=== PATIENT | female | born 1955 | race Caucasian/White ===

== ENCOUNTER → 2018-05-19 08:08 | Outpatient (CLI) | payer BC, SELFPAY ==
--- NOTE | 2018-05-19 08:14 | MM_ITS ---
MM Dig screening mamm BI w/CAD CAD Screening COMPARISON: Digital mammograms with CAD 04/29/2017 and 04/18/2016 INDICATION: There is a history of breast cancer in patient's paternal aunt. TECHNIQUE: Standard CC and MLO images were obtained. R2 CAD reviewed. FINDINGS: The breasts are closed primarily of fat with minimal scattered fibroglandular densities in each breast. Again noted is a small area of asymmetric glandular density central portion of the right breast which is stable and unchanged from previous exams. There is no suspicious lesion and there are no suspicious microcalcifications. IMPRESSION: Stable exam no suspicious lesion seen recommend yearly follow-up BI-RADS Category: 2 Benign Finding(s) RECOMMENDED FOLLOW-UP: 1YR - 1 YEAR FOLLOW-UP (A letter has been sent to the patient regarding results of the study.)
== END ==
PROVIDERS: PCP Internal Medicine; Visit Provider Obstetrics & Gynecology Gynecology
DX: Z12.31 Encounter for screening mammogram for malignant neoplasm of breast (principal)
CPT/HCPCS: 77067

== ENCOUNTER → 2020-02-07 08:47 | Outpatient (CLI) | payer BC, SELFPAY ==
--- NOTE | 2020-02-07 08:52 | MM_ITS ---
PROCEDURE: MM DIG SCREENING MAMM BI W/CAD DIGITAL BREAST TOMOSYNTHESIS INCLUDED Patient Age:64Y CLINICAL INDICATION: SCREENING no hormones. No new complaints.. Family history. Aunt with breast cancer COMPARISON: DIGMAMMS MAMMOGRAM SCREEN-SIGNAL MAINTAINER HELPER N/C from 06/07/2008 DIGMAMMS MAMMOGRAM SCREEN-SIGNAL MAINTAINER HELPER N/C from 06/09/2009 DIGMAMMDX MAMMOGRAM DX-SIGNAL MAINTAINER HELPER N/C from 07/04/2009 D[facility] DIGITAL MAMM-SCREEN BILATERAL from 09/06/2010 [facility] DIGITAL MAMM-SCREEN BILATERAL from 02/04/2012 [facility] DIG MAMM-SCREEN PROSPER from 04/16/2013 [facility] DIG MAMM-SCREEN PROSPER from 05/08/2015 [facility] DIG MAMM-SCREEN PROSPER from 04/18/2016 DMDXUAVR DIG MAMM-DX UNI ADD VIEWS-RT from 04/30/2016 [facility] DIG MAMM-SCREEN PROSPER W/CAD from 04/29/2017 [facility] MM Dig screening mamm BI w/CAD from 05/19/2018 TECHNIQUE: Standard CC and MLO images were obtained. Axillary CC view included on right 6 R2 CAD reviewed. Bilateral digital breast tomosynthesis included. FINDINGS: . The minimal residual fibroglandular elements bilaterally, most evident at superior right breast. No suspicious calcifications. No suspicious new mass Right breast: Asymmetric area of density at the right breast is been present and stable on numerous films even those dating back to 2012, 2011 and even on film screen study from 2007 additional-given this longstanding stability a can be followed safely. Left breast: No new areas of significant concern after reviewing all sequences Subtle areas of nodularity dissipate on one-view to another and can be followed Bilateral follow-up 1 year recommended and should be encouraged IMPRESSION: No new areas of significant concern. Bilateral follow-up 1 year recommended and should be emphasized/encouraged. BI-RAD Category: 2 Benign Finding(s) FOLLOW-UP: 1YR 1 Year Follow-up (A letter has been sent to the patient regarding results of the study.) Dictated by: Ramirez Alvarez MD 02/14/2020 09:03 Electronically signed by Ramirez Alvarez MD in [facility] 02/14/2020 09:03
== END ==
PROVIDERS: PCP Internal Medicine; Visit Provider Internal Medicine
DX: Z12.31 Encounter for screening mammogram for malignant neoplasm of breast (principal)
CPT/HCPCS: 77063; 77067

== ENCOUNTER → 2020-08-21 09:52 | Outpatient (CLI) | payer BC, SELFPAY ==
--- NOTE | 2020-08-21 10:02 | XR_ITS ---
PROCEDURE: XR FOOT RT MIN 3V CLINICAL INDICATION: RT FOOT PAIN,5TH METATARSAL COMPARISON: No exams were available for comparison FINDINGS: There is a fine linear nondisplaced fracture base of 5th metatarsal somewhat more proximal than seen for typical Plummer type fracture. The remaining metatarsals in all of phalanges appear intact. The tarsal bones are normal, the plantar arch is normal. IMPRESSION: Nondisplaced fracture base of 5th metatarsal Dictated by: Dr. Yuan Rios MD 08/21/2020 10:25 Dr. Yuan Rios MD in [facility] 08/21/2020 10:25
== END ==
PROVIDERS: PCP Internal Medicine; Visit Provider Internal Medicine
DX: M79.671 Pain in right foot (principal)
CPT/HCPCS: 73630

== ENCOUNTER → 2020-09-18 10:28 | Outpatient (CLI) | payer BC, SELFPAY ==
--- NOTE | 2020-09-18 10:33 | XR_ITS ---
PROCEDURE: XR FOOT WT BEARING RT 3V CLINICAL INDICATION: fracture follow up COMPARISON: CR XR FOOT RT MIN 3V from 08/21/2020 FINDINGS: There is a persistent transverse lucency at the base of the 5th metatarsal. Complete bony union not felt to be present at this time. IMPRESSION: The nondisplaced fracture base of 5th metatarsal without complete bony union at this time Dictated by: Filippo Smith MD 09/18/2020 16:26 Filippo Smith MD in [facility] 09/18/2020 16:26
== END ==
PROVIDERS: PCP Internal Medicine; Visit Provider Podiatrist
DX: S92.351A Displaced fracture of fifth metatarsal bone, right foot, initial encounter for closed fracture (principal); T14.8XXA Other injury of unspecified body region, initial encounter
CPT/HCPCS: 73630

== ENCOUNTER 2020-10-02 07:43 | Outpatient (RCR) | payer BC, SELFPAY | END 2020-10-02 07:45 | disposition home or self-care (01) | LOC: PT 07:43 | PROVIDERS: PCP Internal Medicine; Visit Provider Podiatrist | DX: S92.351D Displaced fracture of fifth metatarsal bone, right foot, subsequent encounter for fracture with routine healing (principal) | CPT/HCPCS: 97163 ==

== ENCOUNTER → 2020-11-13 08:36 | Outpatient (CLI) | payer BC, SELFPAY ==
--- NOTE | 2020-11-13 08:41 | XR_ITS ---
PROCEDURE: XR FOOT WT BEARING RT 3V CLINICAL INDICATION: fracture follow up COMPARISON: CR XR FOOT RT MIN 3V from 08/21/2020 CR XR FOOT WT BEARING RT 3V from 09/18/2020 FINDINGS: Healing fractures present at the base of the 5th metatarsal. Fracture line is barely visible. The joint spaces are well-preserved. No significant degenerative/arthritic changes. No erosive changes evident. Other findings:None. IMPRESSION: Healing fracture base of 5th metatarsal Dictated by: Filippo Smith MD 11/13/2020 14:49 Filippo Smith MD in [facility] 11/13/2020 14:49
== END ==
PROVIDERS: PCP Internal Medicine; Visit Provider Podiatrist
DX: T14.8XXA Other injury of unspecified body region, initial encounter (principal)
CPT/HCPCS: 73630

== ENCOUNTER → 2022-02-22 13:18 | Outpatient (CLI) | payer MEDICARE, SELFPAY ==
[2022-02-22 14:50] LABS: Chloride 106 mmol/L (98-107)
[2022-02-22 14:51] LABS: Potassium 4.6 mmoL/L (3.5-5.1); Sodium 140 mmol/L (136-145)
[2022-02-22 14:54] LABS: Albumin Level 4.3 g/dl (3.5-5.0); Albumin/Globulin Ratio 1.4 (1.1-1.8); Chol/HDL Ratio 4.5 (1-3.5); Cholesterol 290 mg/dl (140-200); Glucose 85 mg/dl (74-100); HDL Cholesterol 65 mg/dl (40-60); Total Protein,Serum 7.3 g/dl (6.3-8.2); Triglycerides 177 mg/dl (30-150); VLDL Cholesterol 35 mg/dL (0-40)
[2022-02-22 15:04] LABS: Alanine Aminotransferase 33 U/L (12-78); Alkaline Phosphatase 77 U/L (38-126); Aspartate Amino Transferase 40 U/L (14-36); Bilirubin,Total 0.9 mg/dl (0.2-1.3); Blood Urea Nitrogen 13 mg/dl (7-17); Estimated Glomerular Filt Rate 72 ml/min (>60); GFR (African American) 87 ML/MIN (>60)
[2022-02-22 15:05] LABS: Anion Gap 11.6 mEq/L (5-15); Carbon Dioxide 27 mmol/L (22.0-30.0); Direct LDL Cholesterol 178.28 mg/dL (100-129)
[2022-02-22 15:20] LABS: T4 (Thyroxine) 10.7 ug/dl (5.53-11.0)
[2022-02-24 08:15] LABS: Triiodothyronine (T3) Total 94 ng/dL (71-180)
== END ==
PROVIDERS: PCP Internal Medicine; Visit Provider Internal Medicine
DX: E03.9 Hypothyroidism, unspecified (principal); I10 Essential (primary) hypertension; E78.5 Hyperlipidemia, unspecified; E87.6 Hypokalemia; Z87.39 Personal history of other diseases of the musculoskeletal system and connective tissue
CPT/HCPCS: 80053; 80061; 84436; 84443; 84480

== ENCOUNTER → 2022-03-19 07:44 | Outpatient (CLI) | payer MEDICARE, SELFPAY ==
--- NOTE | 2022-03-19 07:48 | MM_ITS ---
PROCEDURE INFORMATION: Exam: MG Bilateral Screening 3D Mammography Exam date and time: 03/19/2022 7:59 AM Age: 67 years old Clinical indication: Screening examination TECHNIQUE: Imaging protocol: Bilateral Screening tomosynthesis and 2D mammography including computer-aided detection (CAD) when performed. COMPARISON: 1. MG MM DIG SCREENING MAMM BI W/CAD 02/07/2020 9:03 AM 2. MG [facility] MM Dig screening mamm BI w/CAD 05/19/2018 8:56 AM FINDINGS: MAMMOGRAPHY: Breast composition: There are scattered areas of fibroglandular density. Mass: None. Architectural distortion: None. Calcifications: No suspicious calcifications. Asymmetric density: None. Skin thickening: None. Axillary adenopathy: None. IMPRESSION: No mammographic evidence of malignancy. Annual screening is recommended unless otherwise clinically indicated. ASSESSMENT: BI-RADS Category 1: Negative
== END ==
PROVIDERS: PCP Internal Medicine; Visit Provider Internal Medicine
DX: Z12.31 Encounter for screening mammogram for malignant neoplasm of breast (principal)
CPT/HCPCS: 77063; 77067

== ENCOUNTER → 2022-04-29 13:11 | Outpatient (CLI) | payer MEDICARE, SELFPAY ==
[2022-04-29 15:33] LABS: Thyroid Stimulating Hormone < 0.02 uIU/mL (0.465-4.68)
== END ==
PROVIDERS: PCP Internal Medicine; Visit Provider Internal Medicine
DX: E03.9 Hypothyroidism, unspecified (principal)
CPT/HCPCS: 84443

== ENCOUNTER → 2022-07-12 09:00 | Outpatient (CLI) | payer MEDICARE, SELFPAY ==
[2022-07-12 17:42] LABS: Thyroid Stimulating Hormone < 0.02 uIU/mL (0.465-4.68)
== END ==
PROVIDERS: PCP Internal Medicine; Visit Provider Internal Medicine
DX: E03.9 Hypothyroidism, unspecified (principal)
CPT/HCPCS: 84443

== ENCOUNTER → 2022-09-13 13:01 | Outpatient (CLI) | payer MEDICARE, SELFPAY ==
[2022-09-13 15:13] LABS: Thyroid Stimulating Hormone 0.03 uIU/mL (0.465-4.68)
== END ==
PROVIDERS: PCP Internal Medicine; Visit Provider Internal Medicine
DX: E03.9 Hypothyroidism, unspecified (principal)
CPT/HCPCS: 84443

== ENCOUNTER → 2023-02-04 12:18 | Outpatient (CLI) | payer MEDICARE, SELFPAY | PROVIDERS: PCP Internal Medicine; Visit Provider Internal Medicine | DX: E03.9 Hypothyroidism, unspecified (principal) | CPT/HCPCS: 84443 ==

== ENCOUNTER → 2023-04-08 12:29 | Outpatient (CLI) | payer MEDICARE, SELFPAY ==
[2023-04-08 17:17] LABS: Thyroid Stimulating Hormone 6.48 uIU/mL (0.465-4.68)
== END ==
PROVIDERS: PCP Internal Medicine; Visit Provider Internal Medicine
DX: E03.9 Hypothyroidism, unspecified (principal)
CPT/HCPCS: 84443

== ENCOUNTER → 2023-08-01 13:54 | Outpatient (CLI) | payer MEDICARE, SELFPAY ==
[2023-08-01 15:03] LABS: Basophils % 0.4 % (0.1-2.0); Eosinophils # 0.2 K/mm3 (0.0-0.4); Eosinophils % 3.6 % (0.1-12.0); Hematocrit 43.2 % (37.0-47.0); Hemoglobin 13.7 g/dL (12.2-16.2); Lymphocytes # 1.2 K/mm3 (0.7-4.5); Lymphocytes % 22.6 % (10-50); Mean Corpuscular HGB Conc 31.7 g/dL (31.8-35.4); Mean Corpuscular Hemoglobin 30.5 pg (27.0-31.2); Mean Corpuscular Volume 96.3 fl (81-99); Mean Platelet Volume 8.7 fl (7.4-10.4); Monocytes # 0.5 K/mm3 (0.1-1.0); Monocytes % 9.1 % (1.7-9.3); Neutrophils # 3.4 K/mm3 (1.8-7.8); Neutrophils % 64.3 % (37.0-80.0); Platelet Count 362 K/mm3 (142-424); Red Blood Count 4.48 M/mm3 (4.20-5.40); White Blood Count 5.2 K/mm3 (4.8-10.8)
[2023-08-01 15:17] LABS: Alanine Aminotransferase 14 U/L (12-78); Albumin Level 4.4 g/dl (3.5-5.0); Albumin/Globulin Ratio 1.3 (1.1-1.8); Alkaline Phosphatase 76 U/L (38-126); Anion Gap 15.4 mEq/L (5-15); Aspartate Amino Transferase 25 U/L (14-36); Blood Urea Nitrogen 9 mg/dl (7-17); Calcium 9.6 mg/dl (8.4-10.2); Carbon Dioxide 29 mmol/L (22.0-30.0); Chloride 101 mmol/L (98-107); Chol/HDL Ratio 5.1 (1-3.5); Cholesterol 309 mg/dl (140-200); Estimated Glomerular Filt Rate 62 ml/min (>60); GFR (African American) 76 ML/MIN (>60); Globulin 3.5 g/dL (1.3-3.2); Glucose 90 mg/dl (74-100); HDL Cholesterol 61 mg/dl (40-60); Potassium 4.4 mmoL/L (3.5-5.1); Sodium 141 mmol/L (136-145); Total Protein,Serum 7.9 g/dl (6.3-8.2); Triglycerides 131 mg/dl (30-150); VLDL Cholesterol 26 mg/dL (0-40)
[2023-08-01 15:28] LABS: Direct LDL Cholesterol 179.26 mg/dL (100-129)
== END ==
PROVIDERS: PCP Internal Medicine; Visit Provider Internal Medicine
DX: I10 Essential (primary) hypertension (principal); E78.5 Hyperlipidemia, unspecified; E03.9 Hypothyroidism, unspecified; J45.909 Unspecified asthma, uncomplicated; J82.83 Eosinophilic asthma
CPT/HCPCS: 80053; 80061; 84443; 85025

== ENCOUNTER 2024-01-24 15:28 | Emergency (ER) | payer MEDICARE, SELFPAY ==
[2024-01-24 15:36] VITALS: BP 128/91; PULSE 84; RESP 18; TEMP 36; O2SAT 97; BMI 28.5
--- NOTE | 2024-01-24 15:40 | PC.NURSE ---
pt to restroom for urine specimen
--- NOTE | 2024-01-24 15:56 | CT_ITS ---
PROCEDURE INFORMATION: Exam: CT Abdomen And Pelvis With Contrast Exam date and time: 01/24/2024 4:22 PM Age: 68 years old Clinical indication: Constipation; Additional info: No bm 7 days TECHNIQUE: Imaging protocol: Computed tomography of the abdomen and pelvis with contrast. Radiation optimization: All CT scans at this facility use at least one of these dose optimization techniques: automated exposure control; mA and/or kV adjustment per patient size (includes targeted exams where dose is matched to clinical indication); or iterative reconstruction. Contrast material: ISOVUE; Contrast volume: 75 ml; Contrast route: IV; COMPARISON: No relevant prior studies available. FINDINGS: Lungs: Lung bases are clear. Liver: Normal. No mass. Gallbladder and bile ducts: Gallbladder is mildly distended otherwise unremarkable. Bile ducts not dilated. Pancreas: There is generalized swelling of the pancreas with peripancreatic inflammatory changes and fluid both anterior and posterior to the body and tail the pancreas extending into the left anterior pararenal space consistent with acute pancreatitis. There is a 4 cm area of diminished enhancement within the neck of the pancreas with low density readings in this area (40-50 Hounsfield units) that do not meet criteria for pancreatic necrosis. However findings raises concern for developing necrotizing pancreatitis for which continued follow-up recommended. Main pancreatic duct is not dilated. Spleen: Normal. No splenomegaly. Adrenal glands: Normal. No mass. Kidneys and ureters: Normal. No hydronephrosis. Stomach and bowel: Unremarkable. No obstruction. No mucosal thickening. Appendix: No evidence of appendicitis. Intraperitoneal space: Unremarkable. No free air. No significant fluid collection. Vasculature: Unremarkable. No abdominal aortic aneurysm. Lymph nodes: Unremarkable. No enlarged lymph nodes. Urinary bladder: Unremarkable as visualized. Reproductive: Unremarkable as visualized. Bones/joints: Unremarkable. No acute fracture. Soft tissues: Unremarkable. IMPRESSION: Findings consistent with acute pancreatitis with 4 cm area of diminished enhancement involving the neck of the pancreas suspicious but inconclusive for pancreatic necrosis for which continued follow-up recommended. Moderate amount of accompanying peripancreatic fluid within the mid abdomen.
[2024-01-24 16:00] VITALS: BP 135/87; PULSE 78; RESP 16; O2SAT 98
[2024-01-24] MEDS: SODIUM CHLORIDE 1205 ML IV (16:06)
[2024-01-24 16:07] LABS: Basophils # 0.2 K/mm3 (0-0.2); Basophils % 0.8 % (0.1-2.0); Eosinophils # 0.1 K/mm3 (0.0-0.4); Eosinophils % 0.2 % (0.1-12.0); Hematocrit 48.5 % (37.0-47.0); Hemoglobin 15.9 g/dL (12.2-16.2); Lymphocytes # 0.7 K/mm3 (0.7-4.5); Lymphocytes % 3.1 % (10-50); Mean Corpuscular HGB Conc 32.7 g/dL (31.8-35.4); Mean Corpuscular Hemoglobin 32.5 pg (27.0-31.2); Mean Corpuscular Volume 99.4 fl (81-99); Mean Platelet Volume 8.5 fl (7.4-10.4); Monocytes # 0.6 K/mm3 (0.1-1.0); Monocytes % 2.5 % (1.7-9.3); Neutrophils # 21.9 K/mm3 (1.8-7.8); Neutrophils % 93.3 % (37.0-80.0); Platelet Count 453 K/mm3 (142-424); Red Blood Count 4.88 M/mm3 (4.20-5.40); Red Cell Distribution Width 13.6 % (11.5-17.5); White Blood Count 23.5 K/mm3 (4.8-10.8)
[2024-01-24 16:09] LABS: Chloride 100 mmol/L (98-107); Potassium 3.2 mmoL/L (3.5-5.1); Sodium 137 mmol/L (136-145)
[2024-01-24 16:09] LABS: Microscopic, Urine URINE MICROSCOPIC (MICROSCOPIC)
[2024-01-24 16:11] LABS: Blood Urea Nitrogen 17 mg/dl (7-17); Creatinine Clearance Estimated 63 mL/min (50-200); Estimated Glomerular Filt Rate 50 ml/min (>60); GFR (African American) 60 ML/MIN (>60)
[2024-01-24 16:12] LABS: Albumin Level 4.6 g/dl (3.5-5.0); Albumin/Globulin Ratio 1.4 (1.1-1.8); Alkaline Phosphatase 215 U/L (38-126); Anion Gap 8.2 mEq/L (5-15); Aspartate Amino Transferase 649 U/L (14-36); Bilirubin,Total 3.8 mg/dl (0.2-1.3); Calcium 9.9 mg/dl (8.4-10.2); Carbon Dioxide 32 mmol/L (22.0-30.0); Globulin 3.3 g/dL (1.3-3.2); Glucose 208 mg/dl (74-100); Total Protein,Serum 7.9 g/dl (6.3-8.2)
[2024-01-24 16:12] LABS: Appearance,Urine CLEAR (Clear); Blood, Urine 2+ (Negative); Color,Urine YELLOW (Yellow); Glucose,Urine (UA) TRACE (Negative); Ketones,Urine TRACE (Negative); Leukocyte Esterase,Urine Negative (Negative); Nitrate,Urine POSITIVE (Negative); PH,Urine 5.5 (5.0-8.5); Protein,Urine 1+ (Negative); Specific Gravity, Urine >= 1.030 (1.005-1.030)
[2024-01-24 16:15] LABS: MANUAL DIFFERENTIAL MANUAL DIFFERENTIAL (MANUAL DIFF)
[2024-01-24 16:17] LABS: Bilirubin,Urine 2+ (Negative)
[2024-01-24 16:18] LABS: Alanine Aminotransferase 865 U/L (12-78)
--- NOTE | 2024-01-24 16:18 | PC.NURSE ---
pt going with radiology
[2024-01-24 16:22] LABS: Bacteria,Urine Trace /lpf; RBC,Urine Occasional #/hpf (0-3); Squamous Epithelial Cell,Urine Occasional #/hpf (0-5)
--- NOTE | 2024-01-24 16:22 | PC.NURSE ---
Dr. Griffith at bedside s/w family
[2024-01-24] MEDS: SODIUM CHLORIDE 0.9% 10ML SYR (RAD ONLY) 10 ML IV (16:24)
[2024-01-24] MEDS: IOPAMIDOL-370 (76%);100ML BOTTLE 75 ML IV (16:24)
[2024-01-24 16:29] LABS: Lactic Acid 2.7 mmol/L (0.7-2.1)
[2024-01-24] MEDS: VANCOMYCIN CONSULT REQUEST 1 EACH NOTAPPLIC (16:30)
--- NOTE | 2024-01-24 16:30 | PC.NURSE ---
Spoke with Leslie with [facility] pharmacy for vancomycin dosing.
--- NOTE | 2024-01-24 16:32 | PC.NURSE ---
LAB HERE DRAWING BLOOD CX
[2024-01-24 16:34] LABS: VBG Base Excess -0.3 mmol/L (-2.4-2.3); VBG HCO3 25.4 mmol/L (23-30); VBG Oxygen Saturation 50.9 % (50-70); VBG PCO2 47.8 mmol/L (35-51); VBG PH 7.34 mmol/L (7.31-7.41); VBG PO2 27.7 mmol/L (28-40); VBG Total CO2 26.9 mmol/L (23-27)
[2024-01-24 16:34] LABS: Bilirubin,Direct 1.7 mg/dl (0.0-0.4)
--- NOTE | 2024-01-24 16:34 | HMH.EDGENADL ---
Discharge Plan Disposition Patient Disposition: Xfer Short-Term Hosp Prescriptions Prescriptions: No Action Livalo 2 mg tablet 2 mg PO DAILY lisinopril-hydrochlorothiazide 20-12.5 mg tablet 1 tab PO levothyroxine 75 mcg tablet 75 mcg PO Referrals Follow up/Referrals: Renan Meza MD [Primary Care Provider] - See instructions Clinical Impressions Clinical Impression: Acute necrotizing pancreatitis, Direct hyperbilirubinemia, Severe sepsis Stand Alone Forms Stand Alone Forms: Transfer Record - ED Instructions Patient Instructions: DI for Acute Abdominal Pain Discharge ED Provider: Sam Griffith General Adult HPI General Chief complaint: Abdominal Pain Stated complaint: vomiting, abd pain Time Seen by Provider: 01/24/24 15:29 Mode of Arrival: Ambulatory Source of Information: Patient Limitations: No Limitations Description of Symptoms (Recalled from ER Triage Doc. by RN): constipation,vomiting. states no bm since friday. took an enema History of Present Illness HPI narrative: Patient is a 68-year-old female with past medical history of high blood pressure, hypothyroidism who presents emergency department for evaluation of abdominal pain and constipation. Patient has not had a spontaneous bowel movement since Friday. She attempted an enema this morning with a little bit of output. She has not had significant flatus throughout the course. Due to progressive abdominal pain worse in her epigastric region she presents here for continued evaluation. No abdominal surgical history. Related Data Home Medications Medication Instructions Recorded Confirmed pitavastatin calcium 2 mg tablet 2 mg PO DAILY 08/21/20 11/13/20 (Livalo) levothyroxine 75 mcg tablet 75 mcg PO 11/13/20 11/13/20 lisinopril 20 1 tab PO 11/13/20 11/13/20 mg-hydrochlorothiazide 12.5 mg tablet Allergies Allergy/AdvReac Type Severity Reaction Status Date / Time Penicillins Allergy Intermediate Hives Verified 11/13/20 09:17 [facility] Disclaimer: The information contained in this section may have been updated after the patient was seen, as this information can be updated by other users. Social History Smoking Status: Never smoker alcohol intake: never substance use type: other current occupational status: retired and other Travel in the last 8 weeks: None caffeine: No ROS Obtained: Yes Systems reviewed as appropriate & no additional complaints except as documented Physical Exam General General appearance: alert and other (Appearing in significant pain in bed) Head Head exam: atraumatic and normocephalic Eye Eye exam: Present PERRL ENT ENT exam: Present mucous membranes moist Neck Neck exam: Present normal inspection Chest Chest inspection: Present normal inspection and symmetric chest wall rise Respiratory Respiratory exam: Present normal lung sounds bilaterally; Absent respiratory distress Cardiovascular Cardiovascular exam: Present regular rate and normal rhythm Abdominal Exam Abdominal exam: Present soft, tenderness (Severe, right upper quadrant, epigastric) and guarding (Voluntary) Extremities Exam Extremities exam: Present normal inspection Neurological Exam Neurological exam: Present alert Psychiatric Psychiatric exam: Present normal affect Skin Skin exam: Present warm and dry Medical Decision Making Andriy Inquiry Pt receiving controlled substance: No Vital Signs: 01/24/24 15:36 01/24/24 16:00 Temperature 96.8 F L Temperature Source Axillary Pulse Rate 78 Pulse Rate [Right] 84 Respiratory Rate 18 16 Blood Pressure 135/87 Blood Pressure [Right Arm] 128/91 H Blood Pressure Mean 108 Blood Pressure Mean [Right Arm] 103 02 Sat by Pulse Oximetry 97 98 Oxygen Delivery Method Room Air Lab Data Lab Results 01/24/24 15:37: WBC 23.5 H*, RBC 4.88, Hgb 15.9, Hct 48.5 H, MCV 99.4 H, MCH 32.5 H, MCHC 32.7, RDW 13.6, Plt Count 453 H, MPV 8.5, Neut % (Auto) 93.3 H, Lymph % (Auto) 3.1 L, Gilmer % (Auto) 2.5, Eos % (Auto) 0.2, Baso % (Auto) 0.8, Neut # (Auto) 21.9 H, Lymph # (Auto) 0.7, Gilmer # (Auto) 0.6, Eos # (Auto) 0.1, Baso # (Auto) 0.2, Total Counted 100, Neutrophils % (Manual) 94 H, Lymphocytes % (Manual) 4 L, Monocytes % (Manual) 2, Platelet Estimate Normal, RBC Morphology Normal, Sodium 137, Potassium 3.2 L, Chloride 100, Carbon Dioxide 32 H, Anion Gap 8.2, BUN 17, Creatinine 1.10 H, Estimated Creat Clear 63, Estimated GFR 50 L, Est GFR ( Amer) 60, Glucose 208 H, Calcium 9.9, Total Bilirubin 3.8 H, Direct Bilirubin 1.7 H, AST 649 H*, ALT 865 H*, Alkaline Phosphatase 215 H, Total Protein 7.9, Albumin 4.6, Globulin 3.3 H, Albumin/Globulin Ratio 1.4, Lipase 08722 H 01/24/24 15:45: Urine Color Yellow, Urine Appearance Clear, Urine pH 5.5, Ur Specific U[place]and >= 1.030, Urine Protein 1+, Urine Glucose (UA) Trace, Urine Ketones Trace, Urine Blood 2+, Urine Nitrate Positive, Urine Bilirubin 2+ A, Urine Urobilinogen 1.0, Ur Leukocyte Esterase Negative, Urine RBC Occasional, Urine WBC None, Ur Squamous Epith Cells Occasional, Urine Bacteria Trace 01/24/24 16:04: Lactate 2.7 H 01/24/24 16:25: VBG pH 7.34, VBG pCO2 47.8, VBG pO2 27.7 L, VBG HCO3 25.4, VBG Total CO2 26.9, VBG O2 Saturation 50.9, VBG Base Excess -0.3, VBG Lactic Acid 3.4 H 01/24/24 15:37 01/24/24 15:37 Orders (Tests/Meds): ED MEDICATIONS Generic Name Dose Route Start Last Admin Trade Name Freq PRN Reason Stop Dose Admin Ceftriaxone Sodium 2 gm/ 100 mls @ 200 mls/hr 01/24/24 16:30 01/24/24 16:58 Sodium Chloride IV 02/03/24 16:29 200 mls/hr Q24H VINAYAK Administration Metronidazole 500 mg in 100 mls @ 100 mls/hr 01/24/24 16:30 Flagyl 500mg/100ml Ivpb IV 02/03/24 16:29 Q8H VINAYAK Vancomycin HCl 2,000 mg/ 250 mls @ 125 mls/hr 01/24/24 16:30 01/24/24 17:03 Sodium Chloride IV 01/24/24 18:29 125 mls/hr ONCE ONE Administration Sodium Chloride 2,410 mls @ 1,205 mls/hr 01/24/24 16:36 01/24/24 16:06 Sod Chlor 0.9% 1000ml Bag 30 ml/kg infuse over 2 hr (2410 ml) 01/24/24 18:35 1,205 mls/hr IV Administration .Q2H ONE Miscellaneous 1 each 01/24/24 16:30 01/24/24 16:30 Vancomycin Consult Request NOTAPPLIC 02/23/24 16:29 1 each CONSULT PHARMACY VINAYAK Administration Discontinued Medications Generic Name Dose Route Start Last Admin Trade Name Daly PRN Reason Stop Dose Admin Hydromorphone HCl 0.5 mg 01/24/24 16:59 01/24/24 17:00 Hydromorphone 2mg/Ml Syringe IV 01/24/24 17:00 0.5 mg ONCE ONE Administration Lactated Ringer's 1,000 mls @ 999 mls/hr 01/24/24 16:02 01/24/24 16:41 Lactated Ringer's 1000 Ml Bag IV 01/24/24 17:02 Not Given .Q1H1M ONE Iopamidol 75 ml 01/24/24 16:23 01/24/24 16:24 Iopamidol-370 (76%);100ml Bottle IV 01/24/24 16:24 75 ml ONCE ONE Administration Morphine Sulfate 4 mg 01/24/24 16:37 01/24/24 16:50 Morphine 4mg/Ml Syringe IV 01/24/24 16:38 4 mg ONCE ONE Administration Ondansetron HCl 4 mg 01/24/24 16:37 01/24/24 16:50 Ondansetron 4mg/2ml Vial IV 01/24/24 16:38 4 mg ONCE ONE Administration Sodium Chloride 10 ml 01/24/24 16:23 01/24/24 16:24 Sodium Chloride 0.9% 10ml Syr (Rad Only) IV 01/24/24 16:24 10 ml ONCE ONE Administration ORDERS Category Date Time Status CT abdomen pelvis w con Stat Cat Scan 01/24/24 15:56 Completed Bilirubin,Direct Stat Lab 01/24/24 15:37 Completed CBC w/Auto Diff [Complete Blood Count Auto Diff] Stat Lab 01/24/24 15:37 Completed CMP [Comprehensive Metabolic Panel] Stat Lab 01/24/24 15:37 Completed Lactic Acid Stat Lab 01/24/24 16:04 Completed Lipase Stat Lab 01/24/24 15:37 Completed UA [Urinalysis and Microscopic] Stat Lab 01/24/24 15:45 Completed Blood Culture Stat Micro 01/24/24 16:45 Received VBG [Venous Blood Gas] Stat RT 01/24/24 16:25 Completed Medical Decision Narrative: In summary patient is a 68-year-old female with past medical history described above presents emergency department for evaluation abdominal pain and constipation. Patient is hemodynamically stable upon arrival, borderline hypothermia 96.8 ?F. Patient appears uncomfortable with significant tenderness. Differential diagnosis includes hepatobiliary pathology, pancreatitis, bowel obstruction, among others. Initial workup will be conducted with hematologic labs, CT scan of the abdomen pelvis IV contrast, urinalysis. Initial workup reviewed by me, hematologic labs remarkable for significant leukocytosis 23.5, extremely elevated lipase, elevated transaminases AST 649, ALT 865, lipase 18,691. Direct bilirubin will be ordered however my concern for cholangitis is high given borderline hypothermia. Blood cultures will be obtained. Antibiotics with ceftriaxone, metronidazole, vancomycin will be initiated given penicillin allergy. Sepsis bolus fluids will be administered. Urinalysis interpreted by me and is consistent with infection. CT imaging informally interpreted by me, there appears to be significant inflammation about the pancreas and gallbladder, gallbladder is distended. Formal read shows acute pancreatitis with 4 cm area of diminished enhancement involving the neck of the pancreas suspicious for pancreatic necrosis. The bile ducts are not dilated and the gallbladder is distended but otherwise unremarkable. Total bilirubin 3.8, direct bilirubin 1.7 concerning for cholestatic picture although no definitive stone is identified. Current differential includes necrotizing pancreatitis with inflammatory changes causing the cholestatic picture, radiolucent stone with normal bile duct choledocholithiasis, cholangitis. The case is discussed [facility] Dr. Simon who graciously excepted patient for transfer for continued evaluation at this time. Critical Care Critical Care Time Critical Care Time: Yes Attestation: On 01/24/24, the high probability of a clinically significant, sudden or life threatening deterioration of the following system(s) required my full and direct attention, intervention and personal management. The time I documented below is in addition to time spent performing reported procedures but includes the following listed in this critical care notation. Total Time Total Critical Care Time: 35
[2024-01-24 16:35] LABS: Lipase 18691 U/L (23-300)
[2024-01-24 16:36] LABS: Lactate Venous 3.4 mmol/L (0.4-2.0)
[2024-01-24 16:37] LABS: Lymphocytes % 4 % (10-50); Monocytes % 2 % (2-9); Neutrophils % 94 % (42-76); Total Cells Counted 100
[2024-01-24 16:38] LABS: Platelet Estimate Normal; RBC Morphology Normal
--- NOTE | 2024-01-24 16:40 | PC.NURSE ---
Radiology called to have stat read on ct scan.
[2024-01-24] MEDS: ONDANSETRON 4MG/2ML VIAL 4 MG IV (16:50)
[2024-01-24] MEDS: MORPHINE 4MG/ML SYRINGE 4 MG IV (16:50)
[2024-01-24] MEDS: CEFTRIAXONE SODIUM 2 GM in 0.9 % SODIUM CHLORIDE 100 ML IV (16:58)
[2024-01-24] MEDS: HYDROMORPHONE 2MG/ML SYRINGE 0.5 MG IV ×2 (17:00→18:16)
--- NOTE | 2024-01-24 17:00 | PC.NURSE ---
calling [facility] at this time will call back
[2024-01-24] MEDS: VANCOMYCIN HCL 2,000 MG in 0.9 % SODIUM CHLORIDE 250 ML 125 MG IV (17:03)
[2024-01-24 17:15] VITALS: BP 195/106; PULSE 66; O2SAT 100
--- NOTE | 2024-01-24 17:19 | PC.NURSE ---
[facility] on phone with [facility], accepted to [facility], ER DR PACHECO
--- NOTE | 2024-01-24 17:25 | PC.NURSE ---
RN on phone with [facility] to give Report to [facility] RN
[2024-01-24 17:26] VITALS: BP 195/106; PULSE 67; RESP 20; TEMP 36.9; O2SAT 97
[2024-01-24 17:30] VITALS: BP 196/109; PULSE 65; O2SAT 95
[2024-01-24] MEDS: METRONIDAZ/SOD CHL 500 MG/100 ML PIGGYBACK 100 MG IV (17:38)
--- NOTE | 2024-01-24 17:38 | PC.NURSE ---
Called EMS for transport [phone]
[2024-01-24] MEDS: KETOROLAC 30MG/ML VIAL 30 MG IV (17:39)
[2024-01-24 18:13] VITALS: BP 180/101; PULSE 75; RESP 18; O2SAT 100
--- NOTE | 2024-01-24 18:27 | PC.NURSE ---
EMS here to take pt to [facility] ER
[2024-01-24 20:08] LABS: Reflex Lactic Add Lactic Reflex
--- NOTE | 2024-01-24 23:17 | PC.NURSE ---
chart accessed for info to [facility]
--- NOTE | 2024-01-27 06:09 | PC.NURSE ---
RECEIVED NOTIFICATION OF POS PRELIM BLOOD CX,AEROBIC BOTTLE. FAXED RESULTS TO [facility]. [phone]
--- NOTE | 2024-01-27 06:16 | PC.NURSE ---
FAXED RESULTS TO [facility] AT [phone]
== END 2024-01-24 18:29 | disposition short-term general hospital (02) ==
PROVIDERS: Emergency Provider Emergency Medicine; PCP Internal Medicine
DX: A41.89 Other specified sepsis (principal); R65.20 Severe sepsis without septic shock; B95.7 Other staphylococcus as the cause of diseases classified elsewhere; K85.91 Acute pancreatitis with uninfected necrosis, unspecified; E80.6 Other disorders of bilirubin metabolism; E87.6 Hypokalemia; I10 Essential (primary) hypertension; E03.9 Hypothyroidism, unspecified
CPT/HCPCS: 74177; 80053; 81001; 82248; 82803; 83605; 83690; 85007; 85025; 87040; 96365; 96375; 96376; 99291; J0696; J2405; J3370; Q9967

== ENCOUNTER 2024-02-09 15:23 | Outpatient (CLI) | payer MEDICARE, SELFPAY ==
[2024-02-09 16:03] LABS: Basophils # 0.1 K/mm3 (0-0.2); Basophils % 0.5 % (0.1-2.0); Eosinophils # 0.3 K/mm3 (0.0-0.4); Eosinophils % 1.5 % (0.1-12.0); Hematocrit 39.2 % (37.0-47.0); Hemoglobin 12.6 g/dL (12.2-16.2); Lymphocytes # 1.9 K/mm3 (0.7-4.5); Lymphocytes % 8.5 % (10-50); Mean Corpuscular HGB Conc 32.1 g/dL (31.8-35.4); Mean Corpuscular Hemoglobin 32.6 pg (27.0-31.2); Mean Corpuscular Volume 101.6 fl (81-99); Mean Platelet Volume 9.2 fl (7.4-10.4); Monocytes # 0.8 K/mm3 (0.1-1.0); Monocytes % 3.8 % (1.7-9.3); Neutrophils # 18.8 K/mm3 (1.8-7.8); Neutrophils % 85.7 % (37.0-80.0); Platelet Count 781 K/mm3 (142-424); Red Blood Count 3.86 M/mm3 (4.20-5.40); Red Cell Distribution Width 14.5 % (11.5-17.5)
[2024-02-09 16:04] LABS: MANUAL DIFFERENTIAL MANUAL DIFFERENTIAL (MANUAL DIFF)
[2024-02-09 16:24] LABS: Chloride 100 mmol/L (98-107); Potassium 4.9 mmoL/L (3.5-5.1); Sodium 138 mmol/L (136-145)
[2024-02-09 16:26] LABS: Amylase 86 U/L (30-110)
[2024-02-09 16:27] LABS: Alanine Aminotransferase 40 U/L (12-78); Albumin/Globulin Ratio 1.1 (1.1-1.8); Alkaline Phosphatase 138 U/L (38-126); Anion Gap 14.9 mEq/L (5-15); Aspartate Amino Transferase 49 U/L (14-36); Bilirubin,Total 1.1 mg/dl (0.2-1.3); Blood Urea Nitrogen 10 mg/dl (7-17); Calcium 9.4 mg/dl (8.4-10.2); Carbon Dioxide 28 mmol/L (22.0-30.0); Estimated Glomerular Filt Rate 100 ml/min (>60); GFR (African American) 121 ML/MIN (>60); Globulin 3.5 g/dL (1.3-3.2); Glucose 77 mg/dl (74-100); Lipase 506 U/L (23-300); Total Protein,Serum 7.5 g/dl (6.3-8.2)
[2024-02-09 17:04] LABS: Eosinophils % 1 % (0-3); Lymphocytes % 9 % (10-50); Macrocytosis 1+; Neutrophils % 90 % (42-76); Platelet Estimate Marked Increase; Total Cells Counted 100
== END 2024-02-09 23:59 | disposition home or self-care (01) ==
LOC: LAB.DROPOF 15:23
PROVIDERS: PCP Internal Medicine; Visit Provider Internal Medicine
DX: K85.11 Biliary acute pancreatitis with uninfected necrosis (principal); E03.9 Hypothyroidism, unspecified; I10 Essential (primary) hypertension; R74.8 Abnormal levels of other serum enzymes
CPT/HCPCS: 80053; 82150; 83690; 85007; 85025

== ENCOUNTER 2024-03-15 13:01 | Outpatient (CLI) | payer MEDICARE, SELFPAY ==
[2024-03-15 14:04] LABS: Basophils # 0.1 K/mm3 (0-0.2); Basophils % 0.6 % (0.1-2.0); Eosinophils # 0.2 K/mm3 (0.0-0.4); Eosinophils % 1.4 % (0.1-12.0); Hemoglobin 10.8 g/dL (12.2-16.2); Lymphocytes # 1.5 K/mm3 (0.7-4.5); Lymphocytes % 12.9 % (10-50); Mean Corpuscular HGB Conc 31.8 g/dL (31.8-35.4); Mean Corpuscular Hemoglobin 31.2 pg (27.0-31.2); Mean Corpuscular Volume 98.4 fl (81-99); Mean Platelet Volume 8.4 fl (7.4-10.4); Monocytes # 0.8 K/mm3 (0.1-1.0); Monocytes % 6.9 % (1.7-9.3); Neutrophils # 8.9 K/mm3 (1.8-7.8); Neutrophils % 78.2 % (37.0-80.0); Platelet Count 535 K/mm3 (142-424); Red Blood Count 3.45 M/mm3 (4.20-5.40); White Blood Count 11.3 K/mm3 (4.8-10.8)
[2024-03-15 14:45] LABS: Alanine Aminotransferase 19 U/L (12-78); Albumin Level 3.6 g/dl (3.5-5.0); Alkaline Phosphatase 189 U/L (38-126); Anion Gap 14.1 mEq/L (5-15); Aspartate Amino Transferase 23 U/L (14-36); Bilirubin,Total 0.7 mg/dl (0.2-1.3); Blood Urea Nitrogen 9 mg/dl (7-17); Calcium 9.5 mg/dl (8.4-10.2); Carbon Dioxide 30 mmol/L (22.0-30.0); Chloride 99 mmol/L (98-107); Estimated Glomerular Filt Rate 99 ml/min (>60); GFR (African American) 120 ML/MIN (>60); Globulin 3.5 g/dL (1.3-3.2); Glucose 116 mg/dl (74-100); Lipase 75 U/L (23-300); Potassium 4.1 mmoL/L (3.5-5.1); Sodium 139 mmol/L (136-145); Total Protein,Serum 7.1 g/dl (6.3-8.2)
== END 2024-03-15 23:59 | disposition home or self-care (01) ==
LOC: LAB.DROPOF 13:03
PROVIDERS: PCP Internal Medicine; Visit Provider Internal Medicine
DX: I10 Essential (primary) hypertension (principal); K85.11 Biliary acute pancreatitis with uninfected necrosis; E03.9 Hypothyroidism, unspecified; J45.909 Unspecified asthma, uncomplicated
CPT/HCPCS: 80053; 83690; 85025

== ENCOUNTER 2024-05-13 11:16 | Outpatient (CLI) | payer MEDICARE, SELFPAY ==
--- NOTE | 2024-05-13 11:20 | XR_ITS ---
FINAL REPORT CLINICAL HISTORY: Right shoulder pain COMPARISON: None FINDINGS: RIGHT SHOULDER 3 views demonstrate no acute fracture or dislocation. There is mild AC joint degenerative change. The visualized bony structures are well aligned. No soft tissue abnormality is seen. IMPRESSION: Mild degenerative change without acute process. Reviewed, Interpreted and Dictated by Ezequiel Varghese III, MD Transcribed by Tayla Valles Authenticated and [facility]
--- NOTE | 2024-05-13 11:20 | XR_ITS ---
FINAL REPORT CLINICAL HISTORY: Shoulder pain COMPARISON: None FINDINGS: LEFT SHOULDER 3 views demonstrate no acute fracture or dislocation. There is mild AC joint degenerative change. The visualized bony structures are well aligned. No soft tissue abnormality is seen. IMPRESSION: Mild degenerative change without acute process. Reviewed, Interpreted and Dictated by Ezequiel Varghese III, MD Transcribed by Tayla Valles Authenticated and [facility]
--- NOTE | 2024-05-13 11:20 | XR_ITS ---
FINAL REPORT CLINICAL HISTORY: Neck pain and stiffness COMPARISON: None FINDINGS: CERVICAL SPINE 5 views were obtained. There is no acute fracture or malalignment. Moderate degenerative changes are noted. There is mild bilateral C5-6 neural foraminal narrowing. There is straightening of the cervical spine which could be due to positioning or muscle spasm. IMPRESSION: Degenerative changes and straightening which may be due to positioning or muscle spasm. Reviewed, Interpreted and Dictated by Ezequiel Varghese III, MD Transcribed by Tayla Valles Authenticated and [facility]
[2024-05-13 14:43] LABS: Basophils # 0.1 K/mm3 (0-0.2); Basophils % 0.6 % (0.1-2.0); Eosinophils # 0.2 K/mm3 (0.0-0.4); Eosinophils % 2.3 % (0.1-12.0); Hematocrit 38.6 % (37.0-47.0); Hemoglobin 12.4 g/dL (12.2-16.2); Lymphocytes # 1.3 K/mm3 (0.7-4.5); Lymphocytes % 14.7 % (10-50); Mean Corpuscular HGB Conc 32.2 g/dL (31.8-35.4); Mean Corpuscular Volume 96.2 fl (81-99); Mean Platelet Volume 8.4 fl (7.4-10.4); Monocytes # 0.5 K/mm3 (0.1-1.0); Monocytes % 6.1 % (1.7-9.3); Neutrophils # 6.7 K/mm3 (1.8-7.8); Neutrophils % 76.3 % (37.0-80.0); Platelet Count 490 K/mm3 (142-424); Red Blood Count 4.01 M/mm3 (4.20-5.40); Red Cell Distribution Width 14.7 % (11.5-17.5); White Blood Count 8.7 K/mm3 (4.8-10.8)
[2024-05-13 15:12] LABS: Alanine Aminotransferase 11 U/L (12-78); Albumin/Globulin Ratio 1.1 (1.1-1.8); Alkaline Phosphatase 121 U/L (38-126); Anion Gap 10.2 mEq/L (5-15); Aspartate Amino Transferase 20 U/L (14-36); Bilirubin,Total 0.5 mg/dl (0.2-1.3); Blood Urea Nitrogen 19 mg/dl (7-17); Calcium 9.8 mg/dl (8.4-10.2); Carbon Dioxide 28 mmol/L (22.0-30.0); Chloride 105 mmol/L (98-107); Chol/HDL Ratio 5.6 (1-3.5); Cholesterol 267 mg/dl (140-200); Estimated Glomerular Filt Rate 83 ml/min (>60); GFR (African American) 101 ML/MIN (>60); Globulin 3.7 g/dL (1.3-3.2); Glucose 90 mg/dl (74-100); HDL Cholesterol 48 mg/dl (40-60); Potassium 4.2 mmoL/L (3.5-5.1); Sodium 139 mmol/L (136-145); Total Protein,Serum 7.7 g/dl (6.3-8.2); Triglycerides 124 mg/dl (30-150); VLDL Cholesterol 25 mg/dL (0-40)
[2024-05-13 15:14] LABS: Erythrocyte Sedimentation Rate 68 mm/hr (0-30)
[2024-05-13 15:22] LABS: Direct LDL Cholesterol 184.74 mg/dL (100-129)
[2024-05-15 05:23] LABS: RA Latex Turbid. 63.1 IU/mL (<14.0)
[2024-06-21 12:13] LABS: Antinuclear Antibodies, IFA Positive
== END 2024-05-13 23:59 | disposition home or self-care (01) ==
LOC: RAD 11:17
PROVIDERS: PCP Internal Medicine; Visit Provider Internal Medicine
DX: M54.2 Cervicalgia (principal); M75.52 Bursitis of left shoulder; E78.5 Hyperlipidemia, unspecified; I10 Essential (primary) hypertension; E03.9 Hypothyroidism, unspecified; M19.90 Unspecified osteoarthritis, unspecified site
CPT/HCPCS: 72050; 73030; 80050; 80053; 80061; 84443; 84550; 85025; 85651; 86038; 86431

== ENCOUNTER 2024-07-09 09:00 | Outpatient (CLI) | payer MEDICARE, SELFPAY ==
--- NOTE | 2024-07-09 09:01 | XR_ITS ---
FINAL REPORT TECHNIQUE: Bone mineral density was calculated of the lumbar spine and hip. 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 Using the left hip, the bone mineral density of the femoral neck is 0.654 g/cm2, corresponding to a T-score of -1.8. NOTE: T-score: Standard deviation compared with peak bone mass of young adult mean. *Following the recommendations of the International Society of Bone densitometry, classification of hip BMD is based on the lower of two T-scores; total hip or femoral neck. IMPRESSION: Diminished bone mineral density of the lumbar spine and left hip consistent with low bone density. Reviewed, Interpreted and Dictated by Ezequiel Varghese III, MD Transcribed by Merced Bridges Authenticated and [facility]
== END 2024-07-09 23:59 | disposition home or self-care (01) ==
LOC: RAD 09:01
PROVIDERS: PCP Internal Medicine; Visit Provider Internal Medicine
DX: Z78.0 Asymptomatic menopausal state (principal)
CPT/HCPCS: 77080

== ENCOUNTER 2024-12-08 16:19 | Outpatient (CLI) | payer MEDICARE, SELFPAY ==
[2024-12-08 17:11] LABS: Anion Gap 12.4 mEq/L (5-15); Blood Urea Nitrogen 15 mg/dl (7-17); Calcium 9.7 mg/dl (8.4-10.2); Carbon Dioxide 31 mmol/L (22.0-30.0); Chloride 100 mmol/L (98-107); Estimated Glomerular Filt Rate 83 ml/min (>60); GFR (African American) 101 ML/MIN (>60); Glucose 85 mg/dl (74-100); Potassium 3.4 mmoL/L (3.5-5.1); Sodium 140 mmol/L (136-145)
[2024-12-08 17:40] LABS: Thyroid Stimulating Hormone 0.26 uIU/mL (0.465-4.68)
== END 2024-12-08 23:59 | disposition home or self-care (01) ==
LOC: LAB.DROPOF 16:19
PROVIDERS: PCP Internal Medicine; Visit Provider Internal Medicine
DX: E03.9 Hypothyroidism, unspecified (principal); I10 Essential (primary) hypertension; M35.3 Polymyalgia rheumatica; M06.9 Rheumatoid arthritis, unspecified; E78.5 Hyperlipidemia, unspecified; Z90.49 Acquired absence of other specified parts of digestive tract
CPT/HCPCS: 80048; 84443

== ENCOUNTER 2025-06-21 09:20 | Outpatient (CLI) | payer MEDICARE, SELFPAY ==
--- OUTSIDE RECORDS SUMMARY | 2025-05-17 09:00 | XMS_ITS | Encounter Summary ---
Author Organization [facility] Address [address] [place] [address] Care Team Providers Care Manager Implementation Name Role Phone Leighann Patel MD Unavailable Reason for Visit * Reason Comments Polymyalgia Rheumatica Encounter Details Date Type Department Care Team (Latest Contact Info) Description 05/17/2025 9:00 AM EDT Office Visit [facility] [address] [place] [address] Leighann Patel MD [address] [place] [address] Polymyalgia rheumatica (Primary Dx); Seropositive rheumatoid arthritis (HCC); Other fatigue; Osteopenia of lumbar spine; Avitaminosis D; [facility] current use of systemic steroids; Encounter for long-term (current) use of high-risk medication; Acute pain of left shoulder Social History Tobacco Use Types Packs/Day Years Used Date Smoking Tobacco: Never Passive Smoke Exposure: Never Smokeless Tobacco: Never Alcohol Use Standard Drinks/Week Comments Never 0 (1 standard drink = 0.6 oz pur e alcohol) Sexually Active Control Partners Comments Yes Post-menopausal Male Comments No Sex and Gender Information Value Date Recorded Sex Assigned at Not on file Legal Sex Female 11:36 AM EST Gender Identity Not on file Sexual Orientation Not on file Occupation Industry Job Start Date Job End Date 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 Not on file Not on file No t on file documented as of this encounter Last Filed Vital Signs Vital Sign Reading Time Taken Comments Blood Pressure 142/88 05/17/2025 9:24 AM EDT Pulse - - Temperature 36.6 C (97.9 F) 05/17/2025 9:24 AM EDT Respiratory Rate - - Oxygen Saturation - - Inhaled Oxygen Concentration - - Weight 87.1 kg (192 lb) 05/17/2025 9:24 AM EDT Height 165.1 cm (5' 5 ) 05/17/2025 9:24 AM EDT Body Mass Index 31.95 05/17/2025 9:24 AM EDT documented in this encounter Ordered Prescriptions Prescription Sig Dispense Quantity Refills Last Filled Start Date End Date folic acid (FOLVITE) 1 mg Oral TabletIndications: Seropositive rheumatoid arthritis (HCC),Encounter for long-term (current) use of high-risk medication Take 1 Tablet by mouth daily. 90 Tablet 05/17/2025 methotrexate sodium, PF, 25 mg/mL Inj SolutionIndication s:Seropositive rheumatoid arthritis (HCC),Encounter for long-term (current) use of high-risk medication Inject 0.9 mL under the skin once a week. 10.5 mL 05/17/2025 06/06/2025 documented in this encounter Progress Notes * Leighann Patel MD - 05/17/2025 9:00 AM EDT Images from the original note were not included. Subjective Subjective: Patient ID: Stacy Palmer is a 70 y.o. female. Chief Complaint Patient presents with Polymyalgia Rheumatica HPI: Stacy Palmer is a 70 y.o.female who presents for follow up visit for seropositive RA (RF 64, [id number]), PMR and osteopenia: previous patient of Dr Young Previous medications: - methotrexate ( stopped on her own in 2007 ) - methotrexate 6 pills weekly ( 09/26- 12/28)switched to s/c and increased dose - prednisone taper ( 05/26- 04/04/25) Current medications: - methotrexate 0.9 ml weekly (12/13/24-)dose increased from 0.7 ml to 0.8 ml weekly on 02/22/25, to 0.9 ml weekly on 04/04/25 Events since last visit: - Increased dose of methotrexate from 0.8 ml to 0.9 ml weekly, folic acid 1 mg daily - she has noticed stiffness in ankles, left shoulder, improves with tylenol, she stays very active,does gardening, lawn mowing - ROS negative for joint swelling, headaches, vision changes, jaw pain reviewed labs done on 04/04/25 - normal CBC, platelets 401 - normal creat, LFTs, sed, C-RP, calcium - vit D 41 The pain / function / disease activity questionnaire was filled out by the patient and reviewed with me. Function on mHAQ = 0.6 Pain on 10-cm VAS = 1 PTGL= 0.5 Disease Activity on RAPID 3 = 0.7 REVIEW OF SYSTEMS See HPI for further details. Review of systems otherwise negative. Past Medical History: Diagnosis Date Essential (primary) hypertension Hypothyroidism Social History Tobacco Use Smoking status: Never Passive exposure: Never Smokeless tobacco: Never Substance Use Topics Alcohol use: Never Family History Problem Relation Age of Onset Diabetes Mother Stroke Father Breast Cancer Paternal Aunt Stomach Cancer Paternal Aunt Diabetes Maternal Grandmother High Blood Pressure Maternal Grandmother Stomach Cancer Paternal Grandfather Allergies Allergen Reactions Penicillins Hives Outpatient Medications Marked as Taking for the 05/17/25 encounter (Office Visit) with Leighann Patel MD Medication Sig Dispense Refill calcium carbonate/vitamin D3 (CALCIUM 500 + D ORAL) Take by mouth. folic acid (FOLVITE) 1 mg Oral Tablet Take 1 Tablet by mouth daily. 90 Tablet 0 [DISCONTINUED] folic acid (FOLVITE) 1 mg Oral Tablet Take 1 Tablet by mouth daily. 90 Tablet 0 Insulin Syringe-Needle U-100 (BD INSULIN SYRINGE ULTRA-FINE) 1 mL 31 gauge x 5/16 Misc Syringe to use with MTX injections 30 Each 3 LEVOthyroxine (SYNTHROID) 88 mcg Oral Tablet Take 88 mcg by mouth daily. lisinopriL-hydrochlorothiazide (PRINZIDE;ZESTORETIC) 20-12.5 mg Oral Tablet Take 1 Tablet by mouth daily. methotrexate sodium, PF, 25 mg/mL Inj Solution Inject 0.9 mL under the skin once a week. 10.5 mL 0 [DISCONTINUED] methotrexate sodium, PF, 25 mg/mL Inj Solution Subcutaneous (Inject under the skin) 0.7 mL once a week. 10.5 mL 0 potassium chloride (MICRO-K) 10 mEq Oral Capsule, Sustained Release Take 10 mEq by mouth daily. Objective: Vital Signs: BP 142/88 (BP Location: Left arm, Patient Position: Sitting) Temp 97.9 ??F (36.6 ??C) (Forehead) Ht 5' 5 (1.651 m) Wt 192 lb (87.1 kg) BMI 31.95 kg/m?? Body mass index is 31.95 kg/m??. Physical Exam CONST: well developed, well nourished, no apparent distress EYES: pupils equal/ round/ sclera white, conjunctiva pink and moist ENT: oropharynx clear without exudates, mucus membranes moist NECK: supple without lymphadenopathy, no thyromegaly, no masses RESP: clear to auscultation bilaterally without wheezes/rhonchi/rales CV: regular rate and rhythm without murmurs/rubs/gallops, no edema/cyanosis/clubbing SKIN: no rash, no indurations, nodules, or tightening. MSK:able to get up from chair x 5 times without support, no scalp tenderness, neer test positive left shoulder, no synovitis on exam Assessment and Plan: Diagnoses and all orders for this visit: Polymyalgia rheumatica (Chronic) Overview: - acute onset inflammatory arthritis bilateral shoulders, hands, neck, improved with prednisone - ROS negative for GCA - she developed PMR flare ( first relapse ) in 08/26 while on prednisone 5 mg daily - restarted methotrexate 6 pills weekly in 09/26 , switched to s/c MTX 0.7 ml weekly on 12/13/24,shehad a flare in 02/25, while on prednisone 1 mg daily, dose of MTX was increased to 0.8 ml weekly on 02/22/25 and dose of prednisone was increased to 4 mg daily, tapered and stopped prednisone on 04/04/25 - no disease activity on exam, she does c/o mild stiffness in ankles, left shoulder, likely OA - Plan: sed, C-RP to rule out PMR flare, recommend taking tylenol 1000 mg BID/TID PRN Orders: - SEDIMENTATION RATE AUTOMATED-QUEST; Future - C REACTIVE PROTEIN-QUEST; Future Seropositive rheumatoid arthritis (HCC) (Chronic) Overview: - seropositive RA (RF 64, CCP 170) , diagnosed several years ago, previously seen by Dr Young,she stopped methotrexate on her own - restarted methotrexate 6 pills weekly in 09/26, switched to s/c MTX 0.7 ml weekly on 12/13/24, shehad a flare in 02/25, dose of MTX was increased to 0.8 ml weekly on 02/22/25, to 0.9 ml weekly on 04/04/25 - no synovitis - Plan: continue methotrexate 0.9 ml weekly, folic acid 1 mg daily Orders: - methotrexate sodium, PF, 25 mg/mL Inj Solution; Inject 0.9 mL under the skin once a week. Dispense: 10.5 mL; Refill: 0 - folic acid (FOLVITE) 1 mg Oral Tablet; Take 1 Tablet by mouth daily. Dispense: 90 Tablet; Refill:0 Other fatigue Osteopenia of lumbar spine Overview: - DEXA scan [facility]: osteopenia (-1.9)lumbar spine, (-1.8)LFN - We did discuss primary treatment measures of dietary calcium, Vitamin D, and the importance of weight bearing and aerobic exercise. We discussed that the target calcium dietary intake should be 1200mg per day,We discussed that her target Vitamin D level should be > 32, to use Vitamin D supplements (2000 IU or 4000 IU of Vitamin D3 per day) as needed to reach her target dose. 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 Risks including but not limited to cardiovascular effects (hypertension, edema), electrolyte disturbances, arrhythmias (bradycardia, atrial fibrillation), FOOD SERVICE HOTEL RUNNER and psychiatric behavioral reactions (apathy, irritability, psychosis), Cushingnoid appearance (marley facies, buffalo hump), GI (weight gain, ulcers), hyperglycemia, avascular necrosis, adrenal insufficiency, osteoporosis and/or infections were discussed with the patient. - Patient understands that blood glucose (particularly if diabetic) and blood pressure should be monitored and if abnormal while on this therapy, should address immediately with primary care provider. - Patient understands that if on this therapy for prolonged period of time, it should not be abruptly stopped but rather tapered as per provider instructions. - Patient instructed to read educational material concerning medication. Injections: - IM depomedrol 120 mg- 08/30/24 Encounter for long-term (current) use of high-risk medication Overview: Medication safety questionnaire DVT:no PE: no CT:no Heart failure: no Stroke: no Shingles:YES, once diverticulitis: no IBD: no skin psoriasis: no depression: no post menopausal: mid 50s Cancer including skin cancer: no Multiple sclerosis: no, FH:no Monitoring parameters: - hep A IgM, BsAg, core AB, C Ab NR-06/30/24 - TB quant negative-06/30/24 - DEXA scan 07/09/24- osteopenia, repeat in 07/29 Discussed risks and benefits of Methotrexate (MTX). Risks including but not limited pneumonitis, hepatoxicity, bone marrow suppression, anemia, infection, fatigue, methotrexate related flu like symptoms, GI side effects, rash, alopecia, headache and/or stomatitis were discussed with the patient. - Patient understands that folic acid should be taken daily or as instructed by provider. Patient understands that regular lab work is required while on methotrexate. Patient understands the drug should be administered weekly. - Patient understands to avoid conception during and for 6 months after the final dose of methotrexate given embryo- toxicity, including . - Patient instructed to read educational material concerning medication. Orders: - methotrexate sodium, PF, 25 mg/mL Inj Solution; Inject 0.9 mL under the skin once a week. Dispense: 10.5 mL; Refill: 0 - folic acid (FOLVITE) 1 mg Oral Tablet; Take 1 Tablet by mouth daily. Dispense: 90 Tablet; Refill:0 Acute pain of left shoulder - XR SHOULDER LEFT 4 VIEWS; Future - Plan: xray left shoulder, PT referral Instructions: - repeat sed, C-RP - xray left shoulder - PT referral for left shoulder pain ( paper order ) - methotrexate 0.9 ml weekly, folic acid 1 mg daily - RTC in 6 weeks This is a moderate complexity gipggcr-hbtldeeh-wkbcri visit based on reviewing outside records, reviewing outside results, obtaining history and physical examination, and ordering unique testing required for the patient's evaluation and care. I reviewed symptoms, imaging findings, laboratory results, physical findings, and treatment to date. I have answered patient's questions, and patient statedsatisfaction regarding the treatment plan and recommendations. Total time 35 minutes with over 50% spent in counseling and/or coordinating care. Return in about 6 weeks (around 06/28/2025) for PMR. documented in this encounter Miscellaneous Notes * Patient Instructions - Leighann Patel MD - 05/17/2025 9:00 AM EDT - repeat sed, C-RP - xray left shoulder - PT referral for left shoulder pain ( paper order ) - methotrexate 0.9 ml weekly, folic acid 1 mg daily - RTC in 6 weeks documented in this encounter Plan of Treatment Upcoming Encounters Date Type Department Care Team (Late st Contact Info) Description 06/29/2025 9:00 AM EDT Office Visit [facility] [address] [place] [address] Leighann Patel MD [address] [place] [address] documented as of this encounter Procedures Procedure Name Priority Date/Time Associated Diagnosis Comments SEDIMENTATION RATE AUTOMATED-QUEST Routine 05/17/2025 9:57 AM EDT Polymyalgia rheumatica C REACTIVE PROTEIN-QUEST Routine 05/17/2025 9:57 AM EDT Polymyalgia rheumatica documented in this encounter Results * XR SHOULDER LEFT 4 VIEWS (05/17/2025 10:20 AM EDT) Anatomical Region Laterality Modality Shoulder Radiographic Sloane ging 05/17/2025 10:2 0 AM EDT Impressions 05/17/2025 10:23 AM EDT No acute bony abnormality of the shoulder. - Note: Radiology results need to be interpreted within a comprehensive clinical context. If you have questions about the radiology report, please contact the office of the ordering clinician. Narrative 05/17/2025 10:23 AM EDT XR SHOULDER LEFT 4 VIEWS, 05/17/2025 10:20 AM CLINICAL HISTORY: M25.512-Pain in left [id number] COMPARISON: None. PROCEDURE COMMENTS: Routine views. FINDINGS: The glenohumeral and acromioclavicular joints are congruent. There is no fracture. Joint spaces overall well-maintained for age. No periostitis. Procedure Note Adriel Rodriguez MD - 05/17/2025 XR SHOULDER LEFT 4 VIEWS, 05/17/2025 10:20 AM CLINICAL HISTORY: M25.512-Pain in left [id number] COMPARISON: None. PROCEDURE COMMENTS: Routine views. FINDINGS: The glenohumeral and acromioclavicular joints are congruent.There is no fracture. Joint spaces overall well-maintained for age. No periostitis. IMPRESSION: No acute bony abnormality of the shoulder. - Note: Radiology results need to be interpreted within a comprehensiveclinical context. If you have questions about the radiology report, please contactthe office of the ordering clinician. Leighann Patel MD [facility] ORDERABLE S Final Result * C REACTIVE PROTEIN-QUEST (05/17/2025 9:57 AM EDT) CRP 4.6 <8.0 mg/L [facility] 05/17/2025 9:57 AM EDT 05/17/2025 9:58 AM EDT Leighann Patel MD [facility] Final Result [facility] [address] [place] [address] * (ABNORMAL) SEDIMENTATION RATE AUTOMATED-QUEST (05/17/2025 9:57 AM EDT) Sed Rate 33(H) < OR = 30 mm/h [facility] 05/17/2025 9:57 AM EDT 05/17/2025 9:58 AM EDT Leighann Patel MD [facility] Luann l Result [facility] [address] [place] [address] documented in this encounter Visit Diagnoses Diagnosis Polymyalgia rheumatica- Primary Seropositive rheumatoid arthritis (HCC) Rheumatoid arthritis Other fatigue Osteopenia of lumbar spine Avitaminosis D Unspecified vitamin D deficiency [facility] current use of systemic steroids Encounter for long-term (current) use of steroids Encounter for long-term (current) use of high-risk medication Encounter for long-term (current) use of other medications Acute pain of left shoulder Acute pain of left shoulder documented in this encounter Discontinued Medications Medication Sig Discontinue Reason Start Date End Da te predniSONE (DELTASONE) 1 mg Oral TabletIndications:Jonathan ymyalgia rheumatica,Encounter for long-term (current) use of high-risk medication prednisone 4 mg daily x 1 weeks, taper by 1 mg every 2 weeks, Cancelled by 01/06/2025 05/17/2025 methotrexate sodium, PF, 25 mg/mL Inj SolutionIndications:S eropositive rheumatoid arthritis (HCC),Encounter for long-term (current) use of high-risk medication Subcutaneous (Inject under the skin) 0.7 mL once a week. Reorder 02/21/2025 05/17/2025 folic acid (FOLVITE) 1 mg Oral TabletIndications:Ser opositive rheumatoid arthritis (HCC),Encounter for long-term (current) use of high-risk medication Take 1 Tablet by mouth daily. Reorder 02/21/2025 05/17/2025 documented as of this encounter Care Teams Manager Implementation Relationship Specialty Start Date End Date Leighann Patel MD [address] [place] [address] Internal Medicine-Rheumatology 06/28/24 documented as of this encounter
--- OUTSIDE RECORDS SUMMARY | 2025-05-17 10:09 | XMS_ITS | Encounter Summary ---
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 folic acid (FOLVITE) 1 mg Oral TabletIndication s:Seropositive rheumatoid arthritis (HCC),Encounter for long-term (current) use of high-risk medication Take 1 Tablet by mouth daily. 90 Tablet 05/17/2025 Insulin Syringe-Needle U-100 (BD INSULIN SYRINGE ULTRA-FINE) 1 mL 31 gauge x 5/16 Misc SyringeIndicatio ns:Polymyalgia rheumatica,Serop ositive rheumatoid arthritis (HCC),Encounter for long-term (current) use of high-risk medication to use with MTX injections 30 Each 3 12/13/2024 LEVOthyroxine (SYNTHROID) 88 mcg Oral Tablet Take 88 mcg by mouth daily. 12/10/2024 lisinopriL-hydro chlorothiazide (PRINZIDE;ZESTOR ETIC) 20-12.5 mg Oral Tablet Take 1 Tablet by mouth daily. potassium chloride (MICRO-K) 10 mEq Oral Capsule, Sustained Release Take 10 mEq by mouth daily. 12/10/2024 vitamin D3-folic acid 94.38 mcg(3,775 unit)-1 mg Oral Capsule Take by mouth. documented as of this encounter Discharge Disposition Disposition Code Departure Means Destination Home or Self Care documented in this encounter Plan of Treatment Upcoming Encounters Date Type Department Care Team (Late st Contact Info) Description 06/29/2025 9:00 AM EDT Office Visit [facility] [address] [place] [address] Leighann Patel MD [address] [place], [place] [id number] documented as of this encounter Procedures Procedure Name Priority Date/Time Associated Diagnosis Comments XR SHOULDER LEFT 4 VIEWS Routine 05/17/2025 10:20 AM EDT Acute pain of left shoulder documented in this encounter Results * XR [...] 10:20 AM CLINICAL HISTORY: M25.512-Pain in left [id number] COMPARISON: None. PROCEDURE COMMENTS: Routine views. FINDINGS: The glenohumeral and acromioclavicular joints are congruent. There is no fracture. Joint spaces overall well-maintained for age. No periostitis. Procedure Note Adriel Rodriguez MD - 05/17/2025 XR SHOULDER LEFT 4 VIEWS, 05/17/2025 10:20 AM CLINICAL HISTORY: M25.512-Pain in left [id number] COMPARISON: None. PROCEDURE COMMENTS: Routine views. FINDINGS: The glenohumeral and acromioclavicular joints are congruent.There is no fracture. Joint spaces overall well-maintained for age. No periostitis. IMPRESSION: No acute bony abnormality of the shoulder. - Note: Radiology results need to be interpreted within a comprehensiveclinical context. If you have questions about the radiology report, please contactthe office of the ordering clinician. Leighann Patel MD [facility] ORDERABLE S Final Result documented in this encounter Visit Diagnoses Diagnosis Acute pain of left shoulder documented in this encounter Care Teams Accreditation Coordinator Relationship Specialty Start Date End Date Leighann Patel MD [address] [place] [place] [address] Internal Medicine-Rheumatology 06/28/24 documented as of this encounter
[2025-06-21 12:10] LABS: Hematocrit 36.3 % (37.0-47.0); Hemoglobin 12.1 g/dL (12.2-16.2); Immature Granulocytes % 0.4 %; Mean Corpuscular HGB Conc 33.3 g/dL (31.8-35.4); Mean Corpuscular Hemoglobin 32.9 pg (27.0-31.2); Mean Corpuscular Volume 98.6 fl (81-99); Nucleated Red Blood Cells % 0 %; Platelet Count 357 K/mm3 (142-424); Red Blood Count 3.68 M/mm3 (4.20-5.40); Red Cell Distribution Width-SD 47.7 fL; White Blood Count 5.3 K/mm3 (4.8-10.8)
[2025-06-21 12:39] LABS: Albumin Level 4.5 g/dl (3.5-5.0); Chloride 103 mmol/L (98-107); Potassium 4.4 mmoL/L (3.5-5.1); Sodium 139 mmol/L (136-145)
[2025-06-21 12:41] LABS: Blood Urea Nitrogen 15 mg/dl (7-17); Creatinine,Serum 0.80 mg/dl (0.52-1.04); Estimated Glomerular Filt Rate 71 ml/min (>60); GFR (African American) 86 ML/MIN (>60)
[2025-06-21 12:42] LABS: Alanine Aminotransferase 13 U/L (12-78); Albumin/Globulin Ratio 1.6 (1.1-1.8); Alkaline Phosphatase 80 U/L (38-126); Anion Gap 13.4 mEq/L (5-15); Aspartate Amino Transferase 22 U/L (14-36); Bilirubin,Total 0.7 mg/dl (0.2-1.3); Calcium 9.5 mg/dl (8.4-10.2); Carbon Dioxide 27 mmol/L (22.0-30.0); Cholesterol 259 mg/dl (140-200); Globulin 2.9 g/dL (1.3-3.2); Glucose 100 mg/dl (74-100); HDL Cholesterol 58 mg/dl (40-60); Total Protein,Serum 7.4 g/dl (6.3-8.2); Triglycerides 207 mg/dl (30-150)
[2025-06-21 13:13] LABS: Thyroid Stimulating Hormone 7.43 uIU/mL (0.465-4.68)
--- OUTSIDE RECORDS SUMMARY | 2025-06-22 11:08 | XMS_ITS | Encounter Summary ---
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 Not on file No t on file documented as of this encounter Progress Notes * Leighann Patel MD - 05/19/2025 8:49 AM EDT reviewed labs done on 05/17/25 - normal C-RP, sed 33 * Leighann Patel MD - 05/17/2025 4:33 PM EDT - xray bilateral shoulders 05/17/25- normal documented in this encounter Plan of Treatment Upcoming Encounters Date Type Department Care Team (Late st Contact Info) Description 06/29/2025 9:00 AM EDT Office Visit [facility] [address] [place] [address] Leighann Patel MD [address] [place] [address] documented as of this encounter Visit Diagnoses Not on filedocumented in this encounter Care Teams Bias Cutter Helper Relationship Specialty Start Date End Date Leighann Patel MD [address] [place] [address] Internal Medicine-Rheumatology 06/28/24 documented as of this encounter
--- OUTSIDE RECORDS SUMMARY | 2025-06-22 11:08 | XMS_ITS | Clinical Summary ---
[facility] Organization [facility] Address [address] [place] [address] Care Team Providers Care Web Merchandiser Name Role Phone Provider, No Known Primary Care Provider Unavail able Social History Tobacco Use Types Packs/Day Years Used Date Smoking Tobacco: Never Assessed Abuse Screen Answer Date Recorded Unsafe at Home or Work/School Not on file Feels Threatened by Someone? Not on file 10/2023 Does Anyone Keep You from Co ntacting Others or Doint Things Outside the Home? Not on file 08/14/2023 Physical Sign of Abuse Present Not on file 1 Housing Stability Answer Date Recorded Current Living Arrangements Not on file 08/03 Potentially Unsafe Housing Conditions Not on vito e 08/14/2023 Family and Community Support Answer Mayo e Recorded Help with Day-to-Day Activities Not on file 08/14/2023 Lonely or Isolated Not on file 08/14/2023 Employment Answer Date Recorded Do you want help finding or keeping work or a tacho b? Not on file 08/14/2023 Disabilities Answer Date Recorded Concentrating, Remembering, or Making Decisions Difficulty Not on file 08/14/2023 Doing Errands Independently Difficulty Not on fi le 08/14/2023 Education Answer Date Recorded Help with school or training? Not on file Preferred Language Not on file 08/14/2023 Comments Unknown Sex and Gender Information Value Date Recorded Sex Assigned at Not on file Legal Sex Female 10:24 AM EDT Gender Identity Not on file Sexual Orientation Not on file Plan of Treatment Health Maintenance Due Date Last Done Comments ANNUAL PHYSICAL 1956 DXA SCAN 1956 TDAP/TD VACCINES (1 - Tdap) 1975 MAMMOGRAM 1996 COLOGUARD 2001 COLON CANCER SCREENING 5 YEAR SIGMOIDOSCOPY 2001 COLONOSCOPY [address] CANCER SCREENING 2001 CT COLONOGRAPHY 2001 FECAL OCCULT BLOOD TEST 2001 FIT Testing (1 year) 2001 Pneumococcal Vaccine 50+ (1 of 1 - PCV) 2006 ZOSTER VACCINE (1 of 2) 2006 COVID-19 Vaccine (1 - 2023- season) 2024 INFLUENZA VACCINE 08/03/2025 HEPATITIS C SCREENING Completed 01/24/2024 Insurance EMPLOYEE Care Teams Web Merchandiser Relationship Specialty Start Date End Date Provider, [place] [address] PCP - General 07/19/20
--- OUTSIDE RECORDS SUMMARY | 2025-06-22 11:08 | XMS_ITS | Patient Health Record ---
Author Organization [facility] Address [address] [place] [address] Care Team Providers Care Rn Mds Coordinator Name Role Phone Deonna Raphael Dontrell [phone] Allergies Allergen (clinical drug ingredient) Drug/Non Drug Allergy documented on EMR Reaction Allergy Type Onset Date Status PENICILLIN V POTASSIUM (PENICILLIN V POTASSIUM TAB Unspecified Drug Allergy 07/18/2020 Active Reason For Referral No Information Problems Problem Type SNOMED Code ICD Code Onset Dates Problem Status W/U Status Risk Notes Problem Adult BMI 31.0-31.9 kg/sq m (Z68.31) 07/18/2020 Active confirmed BMI 31-31.9 adult Plan Of Treatment No Information Medical (General) History Medical History History ICD Code Hypothyroid UTI HTN LEVOTHYROXINE SODIUM 125 MCG ORAL TABLET , ORAL LISINOPRIL-HYDROCHLOROTHIAZIDE 20-25 MG ORAL TABLET, ORAL Surgical History Surgery Date(Month/Year) tonsils Nose
--- OUTSIDE RECORDS SUMMARY | 2025-06-22 11:08 | XMS_ITS | Clinical Summary ---
Author Organization [facility] Address [address] [place] [address] Care Team Providers Care Stock Cutter Name Role Phone Renan Meza MD Primary Care Provider [phone] Allergies Active Allergy Reactions Criticality Noted Date Comments Penicillins Hives Medium 01/24/2024 Medications levothyroxine (Synthroid, Levoxyl) 88 MCG tablet Take 1 tablet (88 mcg) by mouth 1 (one) time each day. Active lisinopril 20 MG tablet Take 1 tablet (20 mg) by mouth 1 (one) time each day for 14 days. 14 tablet 02/04/2024 Active zolpidem (Ambien) 5 MG tablet TAKE 1 TABLET BY MOUTH DAILY AT BEDTIME FOR 15 DAYS NEEDED FOR INSOMNIA 02/17/2024 Active traMADol (Ultram) 50 MG tablet Take 1 tablet (50 mg) by mouth every 6 (six) hours if needed for severe pain for up to 3 doses. 3 tablet 03/24/2024 Active Active Problems Problem Noted Date Diagnosed Date HTN (hypertension) 01/28/2024 Hypothyroidism 01/28/2024 Acute cholangitis 01/25/2024 Intractable abdominal pain 01/24/2024 Resolved Problems Problem Noted Date Diagnosed Date Resolved Date Acute pancreatitis 01/25/2024 4 Family History Medical History Relation Name Comments Malig Hyperthermia Neg Hx Social History Tobacco Use Types Packs/Day Years Used Date Smoking Tobacco: Never Smokeless Tobacco: Never Tobacco Cessation:Counseling Given: Not Answered Alcohol Use Standard Drinks/Week Comments Never 0 (1 standard drink = 0.6 oz pur e alcohol) Humiliation, Afraid, Rape, and Kick questionnair e Answer Date Recorded Within the last year, have y ou been afraid of your partner or ex-partner? No 01/26/2024 Within the last year, have y ou been humiliated or emotionally abused in other ways by your partner or ex-partner? No Within the last year, have y ou been kicked, hit, slapped, or otherwise physically hurt by your partner or ex-partner? No 01/26/2024 Within the last year, have y ou been raped or forced to have any kind of sexual activity by your partner or ex-partner? No 01/26/2024 Hunger Vital Sign Answer Date Recorded Within the past 12 months, y ou worried that your food would run out before you got the money to buy more. Never true 01/26/20 24 Within the past 12 months, t he food you bought just didn't last and you didn't have money to get more. Never true 01/26/2024 PRAPARE - Transportation Answer Date Re corded In the past 12 months, has l ack of transportation kept you from medical appointments or from getting medications? No 01/02 In the past 12 months, has l ack of transportation kept you from meetings, work, or from getting things needed for daily living? No 01/26/2024 Housing Stability Vital Sign Answer Mayo e Recorded In the last 12 months, was t here a time when you were not able to pay the mortgage or rent on time? No 01/26/2024 In the last 12 months, how many places have you lived? 1 01/26/2024 In the last 12 months, was t here a time when you did not have a steady place to sleep or slept in a senior care (including now)? No 01/26/2024 CAGE ASSESSMENT Answer Date Recorded Cage unable to access Not on file 01/30/2024 Cage max number of drinks Not on file 2023 Cage Beverages a week Not on file 01/30/2024 Have you ever felt you should CUT down on your d rinking? 0 01/30/2024 Have you been ANNOYED by people criticizing your drinking? 0 01/30/2024 Have you felt GUILTY about your drinking? 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 0 01/30/2024 CAGE Questionnaire Score 0 024 Utilities Answer Date Recorded In the past 12 months has th e electric, gas, oil, or water company threatened to shut off services in your home? No 01/26/2024 Comments No Sex and Gender Information Value Date Recorded Sex Assigned at Female 02/04/2024 2:11 PM EDT Legal Sex Female 8:38 PM EDT Gender Identity Female 02/04/2024 2:11 PM EDT Sexual Orientation Not on file Last Filed Vital Signs Vital Sign Reading Time Taken Comments Blood Pressure 114/84 04/07/2024 9:00 AM EDT Pulse 72 04/07/2024 9:00 AM EDT Temperature 36.2 C (97.2 F) 04/07/2024 8:40 AM EDT Respiratory Rate 24 04/07/2024 9:00 AM EDT Oxygen Saturation 99% 04/07/2024 9:00 AM EDT Inhaled Oxygen Concentration - - Weight 77.3 kg (170 lb 6.7 oz) 04/07/2024 7:07 A M EDT Height 167.6 cm (5' 6 ) 04/07/2024 7:07 AM EDT Body Mass Index 27.51 04/07/2024 7:07 AM EDT Plan of Treatment Health Maintenance Due Date Last Done Comments [facility] Screening 1955 [facility]Medicare Annual Wellness (AWV) 1955 [facility]-Infant/Child/Adol SDOH Screenings 1956 [facility]-[id number]-21 Vaccine (#1) 1961 [facility]- SDOH Screenings 1974 [facility]-Adult SDOH Screenings 1974 [facility]-DTaP,Tdap,and Td Vaccine s (1 - Tdap) 1975 CT Colonography 2001 Colonoscopy 2001 FIT-DNA 2001 FIT 2001 FOBT 2001 Sigmoidoscopy 2001 [facility]-Colorectal Cancer Screening 2001 [facility]-Breast Cancer Screening 2006 [facility]-Pneumococcal Vaccine: 50 + Years (1 of 1 - PCV) 2006 [facility]-Zoster Vaccines (1 of 2) 2006 [facility]-RSV Vaccine: 60+ Years o r (1 - Risk 60-74 years 1-dose series) 2016 [facility]-Influenza Vaccine (#1) 2025 [facility]-Hepatitis C Screening Completed 2023, 01/24/2024 [facility]-Obesity Intervention Completed 024, 01/24/2024 HPV Vaccines Aged Out No longer eligi ble based on patient's age to complete this topic [facility]-HIB Vaccines Aged Out No longer e ligible based on patient's age to complete this topic [facility]-Hepatitis A Vaccines Aged Out No longer eligible based on patient's age to complete this topic [facility]-IPV Vaccines Aged Out No longer e ligible based on patient's age to complete this topic [facility]-Rotavirus Vaccines Aged Out No lo nger eligible based on patient's age to complete this topic Medical Devices Implanted Type Area Vocational Ed Instructor Device Identifier Shelf Expiration Date Model / Serial / Lot Stent Gastro Panc 5fr 5cm - [id number] Implanted:Qty: 1 on 01/28/2024 by Ayaan Toney MD at [id number] 11/20/2026 [id number] / / [id number] Stent Gastro Panc 5fr 5cm - [id number] Implanted:Qty: 1 on 01/28/2024 by Ayaan Toney MD at [facility]-[id number] 12/16/2026 [id number] / / [id number] Procedures Procedure Name Priority Date/Time Associated Diagnosis Comments ACUTE HEPATITIS PANEL Routine 01/25/2024 4:06 AM EDT from Last 3 Months or Most Recently Relevant to Health Maintenance Results * Hepatitis panel, acute (01/25/2024 4:06 AM EDT) Hepatitis B Surf Antigen Negative Negative 01/25/2024 5:31 AM EDT [facility] Hepatitis A Antibody IgM Negative Negative 01/25/2024 5:31 AM EDT [facility] Hepatitis B Core Antibody IgM Negative Negative 01/25/2024 5:31 AM EDT [facility] Blood Venous blood specimen / Unknown Venipuncture / Unknown 01/25/2024 4:06 AM EDT 01/25/2024 4:16 AM EDT Narrative [facility] - 01/25/2024 5:31 AM EDT Hepatitis C Antibody previously reported on patient within 24hrs and will not be repeated on this panel. See previous results below: Hepatitis C Antibody Date Value Ref Range Status 01/24/2024 Negative Negative Final Patrica Arellano BUSINESS ENTERPRISE OFFICER LAB BLOOD ORDERABLES Final Result [facility] [address] [place] [address] from Last 3 Months or Most Recently Relevant to Health Maintenance Insurance [facility] [address] Advance Directives * Full Code (Latest Code Status on File) Date Activated Date Inactivated Comments 01/27/2024 10:40 PM 02/03/2024 5:12 PM Question Answer Comments Patient has decision-making capacity? Yes * DNR/DNI Date Activated Date Inactivated Comments 01/24/2024 10:36 PM 01/27/2024 10:40 PM Question Answer Comments DNR determined on/before admission date? No Patient has decision-making capacity? Yes Care Teams Stock Cutter Relationship Specialty Start Date End Date Renan Meza MD [address] [place] [address] PCP - General 01/26/24
--- OUTSIDE RECORDS SUMMARY | 2025-06-22 11:08 | XMS_ITS | Clinical Summary ---
Author Organization [facility] Address [address] [place] [address] Phone Care Team Providers Care Low Pressure Boiler Tender Name Role Phone Leighann Patel MD Unavailable Allergies Active Allergy Reactions Criticality Noted Date Comments Penicillins Hives Medium 11/13/2020 Medications lisinopriL-hydr ochlorothiazide (PRINZIDE;ZESTO RETIC) 20-12.5 mg Oral Tablet Take 1 Tablet by mouth daily. Active potassium chloride (MICRO-K) 10 mEq Oral Capsule, Sustained Release Take 10 mEq by mouth daily. 5 Active LEVOthyroxine (SYNTHROID) 88 mcg Oral Tablet Take 88 mcg by mouth daily. 5 Active Insulin Syringe-Needle U-100 (BD INSULIN SYRINGE ULTRA-FINE) 1 mL 31 gauge x 5/16 Misc SyringeIndicati ons:Polymyalgia rheumatica,Sero positive rheumatoid arthritis (HCC),Encounter for long-term (current) use of high-risk medication to use with MTX injections 30 Each 3 5 Active vitamin D3-folic acid 94.38 mcg(3,775 unit)-1 mg Oral Capsule Take by mouth. Activ e calcium carbonate/vitam in D3 (CALCIUM 500 + D ORAL) Take by mouth. A ctive folic acid (FOLVITE) 1 mg Oral TabletIndicatio ns:Seropositive rheumatoid arthritis (HCC),Encounter for long-term (current) use of high-risk medication Take 1 Tablet by mouth daily. 90 Tablet 5 Active methotrexate sodium, PF, 25 mg/mL Inj SolutionIndicat ions:Seropositi ve rheumatoid arthritis (HCC),Encounter for long-term (current) use of high-risk medication Inject 0.9 mL under the skin once a week. 10.5 mL 5 Active Active Problems Problem Noted Date Diagnosed Date Seropositive rheumatoid arthritis 08/30/2024 Overview (05/17/2025): - seropositive RA (RF 64, CCP 170) , diagnosed several years ago, previously seen by Dr Young, she stopped methotrexate on her own - restarted methotrexate 6 pills weekly in 09/26, switched to s/c MTX 0.7 ml weekly on 12/13/24, she had a flare in 02/25, dose of MTX was increased to 0.8 ml weekly on 02/22/25, to 0.9 ml weekly on 04/04/25 Polymyalgia rheumatica 08/30/2024 Overview (05/17/2025): - acute onset inflammatory arthritis bilateral shoulders, hands, neck, improved with prednisone - ROS negative for GCA - she developed PMR flare ( first relapse ) in 08/26 while on prednisone 5 mg daily - restarted methotrexate 6 pills weekly in 09/26 , switched to s/c MTX 0.7 ml weekly on 12/13/24,she had a flare in 02/25, while on prednisone 1 mg daily, dose of MTX was increased to 0.8 ml weekly on 02/22/25 and dose of prednisone was increased to 4 mg daily, tapered and stopped prednisone on 04/04/25 Osteopenia of lumbar spine 07/26/2024 Overview (07/26/2024): - DEXA scan [facility]: osteopenia (-1.9)lumbar spine, (-1.8)LFN - We did [...] as needed to reach her target dose. Encounter for long-term (cur rent) use of high-risk medication 06/30/2024 Overview (10/12/2024): Medication safety questionnaire DVT:no PE: no MT:no Heart failure: no Stroke: no Shingles:YES, once [...] instructed to read educational material concerning medication. joint terminal attack controller current use of systemic steroids 06/30 Overview (12/13/2024): - Discussed risks and benefits of steroids (prednisone, methylprednisolone). 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 [place] [address] Acute pain of left shoulder Discharge Disposition: Home or Self Care 05/17/2025 9:00 AM EDT Office Visit [facility] [address] [place] [address] Leighann Patel MD Polymyalgia rheumatica (Primary Dx); Seropositive rheumatoid arthritis (HCC); Other fatigue; Osteopenia of lumbar spine; Avitaminosis D; FDC current use of systemic steroids; Encounter for long-term (current) use of high-risk medication; Acute pain of left shoulder 05/17/2025 Results [facility] [address] [place] [address] Leighann Patel MD XR SHOULDER LEFT 4 VIEWS, SEDIMENTATION RATE AUTOMATED-QUEST, C REACTIVE PROTEIN-QUEST 04/05/2025 Results Follow-Up [facility] [address] [place] [address] Leighann Patel MD CBC WITH AUTO DIFF-QUEST, CREATININE-QUEST, HEPATIC FUNCTION PANEL-QUEST, Additional followed-up results: 4 04/04/2025 8:40 AM EDT Office Visit [facility] [address] [place] [address] Leighann aPtel MD Polymyalgia rheumatica (Primary Dx); Seropositive rheumatoid arthritis (HCC); Other fatigue; Osteopenia of lumbar spine; Avitaminosis D; Chronic pain of both knees; joint terminal attack controller current use of systemic steroids; Encounter for long-term (current) use of high-risk medication from Last 3 Months Surgical History Surgery Date Site/Laterality Comments CHOLECYSTECTOMY 03/24/2024 PANCREAS SURGERY 04/07/2024 stent was removed PANCREAS SURGERY 01/28/2024 stent placed Medical History Medical History Date Comments Essential (primary) hypertension Hypothyroidism Family History Medical History Relation Name Comments Stroke Father Diabetes Maternal Grandmother d High Blood Pressure Maternal Grandmother Diabetes Mother Breast Cancer Paternal Aunt Stomach Cancer Paternal Aunt Stomach Cancer Paternal Grandfather Relation Name Status Comments Father Maternal Grandmother Mother Paternal Aunt Paternal Grandfather Social History Tobacco Use Types Packs/Day Years Used Date Smoking Tobacco: Never Passive Smoke Exposure: Never Smokeless Tobacco: Never Tobacco Cessation:Counseling Given: [...] 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 Not on file Not on file No t on file Obstetrics History Last Filed Vital Signs Vital Sign Reading [...] Mass Index 31.95 05/17/2025 9:24 AM EDT Plan of Treatment Upcoming Encounters Date Type Department Care Team (Late st Contact Info) Description 06/29/2025 9:00 AM EDT [facility] [address] [place] [address] Leighann Patel MD [address] [place] [address] Health Maintenance Due Date Last Done Comments Wellness Exam Medicare 1958 COVID-19 Vaccine (#1) 1961 DTaP/TDaP/Td (1 - Tdap) 1975 Pneumococcal Vaccine 50+ (1 of 2 - PCV) 1975 Zoster (1 of 2) 1975 Breast Cancer Screening 1996 Cologuard 2001 Colon Cancer Screening 2001 Colonoscopy 2001 FIT 2001 Sigmoidoscopy 2001 Virtual Colonography 2001 RSV or 60+ (1 - Ris k 60-74 years 1-dose series) 2016 Bone Density Screening 2021 Influenza Vaccine (#1) 2025 Hepatitis C Screening Completed 06/30/2024 Hepatitis B Vaccine Aged Out No longe r eligible based on patient's age to complete this topic Meningococcal B Vaccine Aged Out No l onger eligible based on patient's age to complete this topic Procedures Procedure Name Priority Date/Time Associated Diagnosis Comments XR SHOULDER LEFT 4 VIEWS Routine 05/17/2025 10:20 AM EDT Acute pain of left shoulder C REACTIVE PROTEIN-QUEST Routine 05/17/2025 9:57 AM EDT Polymyalgia rheumatica SEDIMENTATION RATE AUTOMATED-QUEST Routine 05/17/2025 9:57 AM EDT Polymyalgia rheumatica CALCIUM, IONIZED-QUEST Routine 9:04 AM EDT Polymyalgia rheumatica Seropositive rheumatoid arthritis (HCC) Osteopenia of lumbar spine Avitaminosis D Encounter for long-term (current) use of high-risk medication VITAMIN D 25 HYDROXY-QUEST Routine 04/04/2025 9:04 AM EDT Polymyalgia rheumatica Seropositive rheumatoid arthritis (HCC) Osteopenia of lumbar spine Avitaminosis D Encounter for long-term (current) use of high-risk medication C REACTIVE PROTEIN-QUEST Routine 04/04/2025 9:04 AM EDT Polymyalgia rheumatica Seropositive rheumatoid arthritis (HCC) Osteopenia of lumbar spine Avitaminosis D Encounter for long-term (current) use of high-risk medication SEDIMENTATION RATE AUTOMATED-QUEST Routine 04/04/2025 9:04 AM EDT Polymyalgia rheumatica Seropositive rheumatoid arthritis (HCC) Osteopenia of lumbar spine Avitaminosis D Encounter for long-term (current) use of high-risk medication HEPATIC FUNCTION PANEL-QUEST Routine 04/04/2025 9:04 AM EDT Polymyalgia rheumatica Seropositive rheumatoid arthritis (HCC) Osteopenia of lumbar spine Avitaminosis D Encounter for long-term (current) use of high-risk medication CREATININE-QUEST Routine 04/04/2025 9:04 AM EDT Polymyalgia rheumatica Seropositive rheumatoid arthritis (HCC) Osteopenia of lumbar spine Avitaminosis D Encounter for long-term (current) use of high-risk medication CBC WITH AUTO DIFF-QUEST Routine 04/04/2025 9:04 AM EDT Polymyalgia rheumatica Seropositive rheumatoid arthritis (HCC) Osteopenia of lumbar spine Avitaminosis D Encounter for long-term (current) use of high-risk medication HEPATITIS C ANTIBODY-QUEST Routine 06/30/2024 11:43 AM EDT from Last 3 Months or Most Recently Relevant to Health Maintenance Results * XR SHOULDER LEFT 4 VIEWS [...] 10:20 AM CLINICAL HISTORY: M25.512-Pain in left [id number] COMPARISON: None. PROCEDURE COMMENTS: Routine views. FINDINGS: The glenohumeral and acromioclavicular joints are congruent. There is no fracture. Joint spaces overall well-maintained for age. No periostitis. Procedure Note Adriel Rodriguez MD - 05/17/2025 XR SHOULDER LEFT 4 VIEWS, 05/17/2025 10:20 AM CLINICAL HISTORY: M25.512-Pain in left [id number] COMPARISON: None. PROCEDURE COMMENTS: Routine views. FINDINGS: [...] DIAGNOSTIC IMAGING ORDERABLE S Final Result * (ABNORMAL) SEDIMENTATION RATE AUTOMATED-QUEST (05/17/2025 9:57 AM EDT) Only the most recent of2 resultswithin the time period is included. Sed Rate 33(H) < OR = 30 mm/h [facility] 05/17/2025 9:57 AM EDT 05/17/2025 9:58 AM EDT Leighann Patel MD [facility] ORDERABLES Luann l Result [facility] [address] [place] [address] * C REACTIVE PROTEIN-QUEST (05/17/2025 9:57 AM EDT) Only the most recent of2 resultswithin the time period is included. CRP 4.6 <8.0 mg/L [facility] 05/17/2025 9:57 AM EDT 05/17/2025 9:58 AM EDT Leighann Patel MD [facility]CHEMISTRY ORDERABLES Final Result [facility] [address] [place] [address] * VITAMIN D 25 HYDROXY-QUEST (04/04/2025 9:04 AM EDT) VIT D 25 OH 41 30 - 100 ng/mL [facility] Comment: Vitamin D Status 25-OH Vitamin D: Deficiency: <20 ng/mL Insufficiency: 20 - 29 ng/mL Optimal: > or = 30 ng/mL For 25-OH Vitamin D testing on patients on D2-supplementation and patients for whom quantitation of D2 and D3 fractions is required, the QuestAssureD(TM) 25-OH VIT D, (D2,D3), LC/MS/MS is recommended: order code 63860 (patients >2yrs). See Note 1 Note 1 For additional information, please refer to http://education.Play2Shop.com/faq/GZQ412 (This link is being provided for informational/ educational purposes only.) 04/04/2025 9:04 AM EDT 04/04/2025 9:04 AM EDT Leighann Patel MD [facility]MISTRY ORDERABLES Final Result [facility] [address] [place] [address] * HEPATIC FUNCTION PANEL-QUEST (04/04/2025 9:04 AM EDT) Protein, Total 8.0 6.1 - 8.1 g/dL [facility] Albumin 4.8 3.6 - 5.1 g/dL [facility] Globulin 3.2 1.9 - 3.7 g/dL (calc) [facility] Albumin/Globuli n Ratio 1.5 1.0 - 2.5 (calc) [facility] Total Bilirubin 0.6 0.2 - 1.2 mg/dL [facility] Bilirubin, Direct (Micro) 0.1 < OR = 0.2 mg/dL [facility] Bilirubin, Indirect (Micro) 0.5 0.2 - 1.2 mg/dL (calc) [facility] Alk Phos 69 37 - 153 U/L [facility] AST 15 10 - 35 U/L [facility] ALT 12 6 - 29 U/L [facility] 04/04/2025 9:04 AM EDT 04/04/2025 9:04 AM EDT Leighann Patel MD [facility]MI[facility] ORDERABLES Final Result [facility] [address] [place] [address] * CREATININE-QUEST (04/04/2025 9:04 AM EDT) Creatinine 0.75 0.50 - 1.05 mg/dL [facility] [place] EGFR 86 > OR = 60 mL/min/1.73 m2 [facility] 04/04/2025 9:04 AM EDT 04/04/2025 9:04 AM EDT Leighann Patel MD [facility]MI[facility] ORDERABLES Final Result Performing Organization Address [facility] de Phone Number [facility] [address] [place] [address] * (ABNORMAL) CBC WITH AUTO DIFF-QUEST (04/04/2025 9:04 AM EDT) WBC 8.8 3.8 - 10.8 Thousand/u L [facility] RBC 4.30 3.80 - 5.10 Million/uL [facility] Hemoglobin 13.7 11.7 - 15.5 g/dL [facility] Hematocrit 43.0 35.0 - 45.0 % [facility] MCV 100.0 80.0 - 100.0 fL [facility] MCH 31.9 27.0 - 33.0 pg [facility] MCHC 31.9(L) 32.0 - 36.0 g/dL [facility] Comment: For adults, a slight decrease in the calculated MCHC value (in the range of 30 to 32 g/dL) is most likely not clinically significant; however, it should be interpreted with caution in correlation with other red cell parameters and the patient's clinical condition. RDW 13.7 11.0 - 15.0 % [facility] Platelets 401(H) 140 - 400 Thousand/u L [facility] MPV 10.6 7.5 - 12.5 fL [facility] Neut# 6,802 1,500 - 7,800 cells/uL [facility] Lymph# 1,355 850 - 3,900 cells/uL [facility] Monocytes(Absolu te) 405 200 - 950 cells/uL [facility] Eos 185 15 - 500 cells/uL [facility] Baso# 53 0 - 200 cells/uL [facility] Neut Percent 77.3 % [facility] Lymph Percent 15.4 % [facility] Monocytes 4.6 % [facility] Eos Percent 2.1 % [facility] Baso Percent 0.6 % [facility] 04/04/2025 9:04 AM EDT 04/04/2025 9:04 AM EDT Leighann Patel MD [facility]HEMATOLOGY ORDERABLES Luann l Result [facility] [address] [place] [address] * CALCIUM, IONIZED-QUEST (04/04/2025 9:04 AM EDT) Calcium Ionized 5.5 4.7 - 5.5 mg/dL [facility] 04/04/2025 9:04 AM EDT 04/04/2025 9:04 AM EDT Leighann Patel MD [facility]CHEMISTRY ORDERABLES Final Result [facility] [address] [place] [address] * HEPATITIS C ANTIBODY-QUEST (06/30/2024 11:43 AM EDT) Hep C Ab Interp NON-REACTI VE NON-REACT ZOHREH [facility] Comment: HCV antibody was non-reactive. There is no laboratory evidence of HCV infection. In most cases, no further action is required. However, if recent HCV exposure is suspected, a test for HCV RNA (test code 16204) is suggested. For additional information please refer to http://education.ShopIt/faq/EMW06w8 (This link is being provided for informational/ educational purposes only.) 06/30/2024 11:4 3 AM EDT 06/30/2024 11:44 AM EDT us Leighann Patel MD [facility]IMMUNOLOGY ORDERABLES Luann l Result [facility] [address] [place] [address] from Last 3 Months or Most Recently Relevant to Health Maintenance Insurance [employer] MEDICARE PPO MR [employer] MEDICARE PPO MR Care Teams Low Pressure Boiler Tender Relationship Specialty Start Date End Date Leighann Patel MD [address] [facility] [place] [address] Internal Medicine-Rheumatology 06/28/24
--- OUTSIDE RECORDS SUMMARY | 2025-06-22 11:08 | XMS_ITS | Encounter Summary ---
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 10.5 mL 06/06/2025 documented in this encounter Miscellaneous Notes * Telephone Encounter - Keyla Winter MA - 06/06/2025 9:46 AM EDT Pt requesting MTX Rf LCV 05/20/25 NCV 06/29/25 Labs 04/04/25 documented in this encounter Plan of Treatment Upcoming Encounters Date Type Department Care Team (Late st Contact Info) Description 06/29/2025 9:00 AM EDT Office Visit [facility] [address] [place] [address] Leighann Patel MD [address] [place] [address] documented as of this encounter Visit Diagnoses Diagnosis Seropositive rheumatoid arthritis (HCC) Rheumatoid arthritis Encounter for long-term (current) use of high-risk medication Encounter for long-term (current) use of other medications documented in this encounter Discontinued Medications Medication Sig Discontinue Reason Start Date End Da te methotrexate sodium, PF, 25 mg/mL Inj SolutionIndications:Sero positive rheumatoid arthritis (HCC),Encounter for long-term (current) use of high-risk medication Inject 0.9 mL under the skin once a week. Reorder 05/17/2025 06/06/2025 documented as of this encounter Care Teams Plaster Mold Maker Relationship Specialty Start Date End Date Leighann Patel MD [address] [place] [address] Internal Medicine-Rheumatology 06/28/24 documented as of this encounter
--- OUTSIDE RECORDS SUMMARY | 2025-06-22 11:08 | XMS_ITS | Encounter Summary ---
Author Organization [facility] Address [address] [place] [address] Care Team Providers Care Hogshead Salvage Name Role Phone Leighann Patel MD Unavailable Encounter Details Date Type Department Care Team (Latest Contact Info) Description 02/22/2025 Results Follow-Up [facility] [address] [place] [address] Leighann Patel MD [address] [place] [address] SEDIMENTATION RATE AUTOMATED-QUEST, C REACTIVE PROTEIN-QUEST, CBC WITH AUTO DIFF-QUEST, Additional followed-up results: 2 Social History Tobacco Use Types Packs/Day Years [...] 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 100 Tablet 02/22/2025 06/01/202 5 documented in this encounter Progress Notes * Leighann Patel MD - 02/22/2025 4:22 PM EDT reviewed labs done on 02/21/25 - normal CBC, creat, LFTs, sed - C-RP 10.4 Kindly inform patient that C-RP came back mildly elevated. Plan: Increase dose of prednisone to 4 mg daily , taper by 1 mg every 10 days and stop, Increase dose of methotrexate from 0.7 ml to 0.8 ml weekly, folic acid 1 mg daily documented in this encounter Plan of Treatment Upcoming Encounters Date Type Department Care Team (Late st Contact Info) Description 06/29/2025 9:00 AM EDT Office Visit [facility] [address] [place] [address] Leighann Patel MD [address] [place] [address] documented as of this encounter Visit Diagnoses Diagnosis Polymyalgia rheumatica- Primary Seropositive rheumatoid arthritis (HCC) Rheumatoid arthritis jail current use of systemic steroids Encounter for long-term (current) use of steroids documented in this encounter Care Teams Hogshead Salvage Relationship Specialty Start Date End Date Leighann Patel MD [address] [place] [address] Internal Medicine-Rheumatology 06/28/24 documented as of this encounter
== END 2025-06-21 23:59 | disposition home or self-care (01) ==
LOC: LAB.DROPOF 06-22 10:52
PROVIDERS: PCP Internal Medicine; Visit Provider Internal Medicine
DX: E03.9 Hypothyroidism, unspecified (principal); I10 Essential (primary) hypertension; E78.5 Hyperlipidemia, unspecified; M06.9 Rheumatoid arthritis, unspecified
CPT/HCPCS: 80053; 80061; 84443; 85025

== ENCOUNTER 2025-06-24 08:18 | Outpatient (CLI) | payer MEDICARE, SELFPAY ==
--- OUTSIDE RECORDS SUMMARY | 2025-06-24 08:26 | XMS_ITS | Clinical Summary ---
[facility] Address [address] [place] [address] Care Team Providers Care Glue Plant Operator Name Role Phone Provider, No Known Primary [...] SCREENING Completed 01/24/2024 Insurance EMPLOYEE Care Teams Glue Plant Operator Relationship Specialty Start Date End Date Provider, [place] [address] PCP - General 07/19/20
--- OUTSIDE RECORDS SUMMARY | 2025-06-24 08:26 | XMS_ITS | Clinical Summary ---
Author Organization [facility] Address [address] [place] [address] Care Team Providers Care Pusher Operator Name Role Phone Renan Meza MD Primary Care Provider [phone] Allergies Active Allergy Reactions Criticality Noted Date [...] place to sleep or slept in a longterm (including now)? No 01/26/2024 CAGE ASSESSMENT Answer [...] drink first t nichol in the morning (EYE-SHANK CEMENTER HAND) to steady your nerves or to get [...] Health Maintenance Due Date Last Done Comments [facility]-Bone Density Scan 1956 [facility]-Depression Screening 1956 [facility]-Medicare Annual Wellness (AWV) 1955 [facility]-Infant/Child/Adol SDOH Screenings 1955 [id number] Vaccine (#1) 1961 [facility]- SDOH Screenings 1974 [...] this topic Medical Devices Implanted Type Area Mold Cleaner Device Identifier Shelf Expiration Date Model / Serial / Lot Stent Gastro Panc 5fr 5cm - [id number] Implanted:Qty: 1 on 01/28/2024 by Ayaan Toney MD at [facility]creas [facility]-[id number] 11/20/2026 [id number] / / [id number] Stent Gastro Panc 5fr 5cm - [id number] Implanted:Qty: 1 on 01/28/2024 by Ayaan Toney MD at [id number] 12/16/2026 [id number] / / [id number] Procedures Procedure Name Priority Date/Time Associated Diagnosis Comments ACUTE HEPATITIS PANEL Routine 01/25/2024 4:06 AM EDT from Last 3 Months or Most Recently Relevant to Health Maintenance Results * Hepatitis panel, acute (01/25/2024 4:06 AM EDT) Hepatitis B Surf Antigen Negative Negative 01/25/2024 5:31 AM EDT [facility] Hepatitis A Antibody IgM Negative Negative 01/25/2024 5:31 AM EDT [facility] Hepatitis B Core Antibody IgM [...] Status 01/24/2024 Negative Negative Final [facility] Arell[facility] BLOOD ORDERABLES Final Result [facility] [address] [place] [address] from Last 3 Months or Most Recently Relevant to Health Maintenance Insurance [facility] MEDICARE Advance Directives * Full Code (Latest Code Status on File) Date Activated Date Inactivated Comments 01/27/2024 10:40 PM 02/03/2024 5:12 PM Question Answer Comments Patient has decision-making capacity? Yes * DNR/DNI Date Activated Date Inactivated Comments 01/24/2024 10:36 PM 01/27/2024 10:40 PM Question Answer Comments DNR determined on/before admission date? No Patient has decision-making capacity? Yes Care Teams Pusher Operator Relationship Specialty Start Date End Date Renan Meza MD [address] [facility] [address] [place] [address] PCP - General 01/26/24
--- OUTSIDE RECORDS SUMMARY | 2025-06-24 08:26 | XMS_ITS | Patient Health Record ---
Author Organization [facility] Address [address] [facility] [address] [place] [address] Care Team Providers Care Circulation Librarian Name Role Phone Deonna Raphael Dontrell [phone] Allergies Allergen (clinical drug ingredient) Drug/Non Drug [...]
== END 2025-06-24 23:59 | disposition home or self-care (01) ==
LOC: RAD 08:19
PROVIDERS: PCP Internal Medicine; Visit Provider Internal Medicine
DX: Z12.31 Encounter for screening mammogram for malignant neoplasm of breast (principal)
CPT/HCPCS: 77063; 77067